=== PATIENT | female | born 2000 | race Hispanic/Latino ===

== ENCOUNTER 2023-07-16 10:10 | Emergency (ER) | payer BC ==
[2023-07-16 11:11] LABS: Absolute Lymphocytes (CBC) 1.9 K/uL (0.7-4.9); Hematocrit 38.2 % (36.0-45.0); Lymphocytes % 23.8 % (15.3-44.8); MCV 75.1 fL (80-100); MPV 9.5 fL (7.6-11.3); Platelets 250 thou/uL (152-406); RBC Red Blood Cell Count 5.09 M/uL (3.86-4.86)
[2023-07-16 11:13] LABS: Protime INR 0.96
[2023-07-16 11:20] LABS: Barbiturates NEGATIVE (NEGATIVE); Benzodiazepines POSITIVE (NEGATIVE); Cocaine NEGATIVE (NEGATIVE); METHAMPHETAM NEGATIVE (NEGATIVE); Methadone NEGATIVE (NEGATIVE); Opiates NEGATIVE (NEGATIVE); Phencyclidine NEGATIVE (NEGATIVE); THC Cannibis NEGATIVE (NEGATIVE)
[2023-07-16 11:23] LABS: ALT/SGPT 25 U/L (13-56); AST/SGOT 15 U/L (15-37); Albumin 3.5 g/dL (3.4-5.0); Alkaline Phosphatase 91 U/L (45-117); BUN Blood Urea Nitrogen 19 mg/dL (7-18); Bicarbonate 28 mEq/L (21-32); Bilirubin Direct < 0.1 mg/dL (0-0.2); Bilirubin Indirect, Calculated ND mg/dL (0.2-0.8); Bilirubin Total 0.3 mg/dL (0.2-1.0); Glomerular Filtration Rate 50 ml/min (=/>90); Glucose Level 79 mg/dL (74-106); Potassium 3.8 mEq/L (3.5-5.1); Protein, Total 7.7 g/dL (6.4-8.2); Sodium Level 138 mEq/L (136-145)
[2023-07-16 12:31] LABS: Specific Gravity 1.008 (1.005-1.030)
--- NOTE | 2023-07-16 12:41 | ER ---
Nurse's Notes [facility] Name: Clarissa Davis Age: 23 yrs Sex: Female : 2000 Arrival Date: 07/16/2023 Time: 10:10 Bed 5 Private MD: Diagnosis: Headache;Abuse of other non-psychoactive substances Presentation: 07/16 10:30 Chief complaint: Headache x 2 days. Coronavirus screen: At this time, the client does hb not indicate any symptoms associated with coronavirus-19. Ebola Screen: No symptoms or risks identified at this time. Initial Sepsis Screen: Does the patient meet any 2 criteria? No. Patient's initial sepsis screen is negative. Does the patient have a suspected source of infection? No. Patient's initial sepsis screen is negative. Risk Assessment: Do you want to hurt yourself or someone else? Patient reports no desire to harm self or others. Onset of symptoms was July 15, 2023. 10:30 Method Of Arrival: Ambulatory hb 10:30 Acuity: SHADY 3 hb Historical: - Allergies: 10:32 No Known Allergies; hb - Home Meds: 11:33 clonazepam 1 mg oral tablet daily [Active]; escitalopram oxalate 20 mg oral tablet rs5 daily [Active]; Depakote 250 mg oral tablet, delayed release (enteric coated) 3 times per day [Active]; - PMHx: 10:27 Asthma; rs5 11:33 Bilat Breast Reduction; rs5 - Immunization history:: Adult Immunizations unknown. - Social history:: Smoking status: unknown. Screenin:30 [facility] ED Fall Risk Assessment (Adult) History of falling in the last 3 months, kc6 including since admission No falls in past 3 months (0 pts) Confusion or Disorientation No (0 pts) Intoxicated or Sedated No (0 pts) Impaired Gait No (0 pts) Mobility Assist Device Used No (0 pt) Altered Elimination No (0 pt) Score/Fall Risk Level 0 - 2 = Low Risk. Abuse screen: Denies threats or abuse. Denies injuries from another. Nutritional screening: No deficits noted. Tuberculosis screening: No symptoms or risk factors identified. Assessment: 10:25 General: Appears in no apparent distress. uncomfortable, Behavior is cooperative, rs5 anxious. 10:25 Pain: Complains of pain in head Pain does not radiate. Pain currently is 8 out of 10 on rs5 a pain scale. Quality of pain is described as aching, Pain began one week ago, worse today Is intermittent. Neuro: Level of Consciousness is awake, alert, obeys commands, confused, Oriented to person, place, time, situation. Cardiovascular: Heart tones S1 S2 present Rhythm is regular. Respiratory: Airway is patent Respiratory effort is even, unlabored, Respiratory pattern is regular, symmetrical. GI: Abdomen is round non-distended, Bowel sounds present X 4 quads. Abd is soft and non tender X 4 quads. : No signs and/or symptoms were reported regarding the genitourinary system. EENT: No signs and/or symptoms were reported regarding the EENT system. EENT: No signs and/or symptoms were reported regarding the EENT system. Derm: Skin is dry, Skin is normal, Skin temperature is warm. Musculoskeletal: Range of motion: intact in all extremities. 11:25 Reassessment: Patient appears in no apparent distress at this time. No changes from kc6 previously documented assessment. Patient and/or family updated on plan of care and expected duration. Pain level reassessed. Patient is alert, oriented x 3, equal unlabored respirations, skin warm/dry/pink. 12:25 Reassessment: Patient appears in no apparent distress at this time. No changes from kc6 previously documented assessment. Patient and/or family updated on plan of care and expected duration. Pain level reassessed. Patient is alert, oriented x 3, equal unlabored respirations, skin warm/dry/pink. 13:25 Reassessment: Patient appears in no apparent distress at this time. No changes from kc6 previously documented assessment. Patient and/or family updated on plan of care and expected duration. Pain level reassessed. Patient is alert, oriented x 3, equal unlabored respirations, skin warm/dry/pink. Vital Signs: 10:22 BP 135 / 91; Pulse 98; Resp 17; Temp 98.5(O); Pulse Ox 99% on R/A; rs5 10:30 BP 135 / 91; Pulse 105; Resp 20; Temp 98.4; Pulse Ox 100% on R/A; Weight 58.97 kg; hb Height 5 ft. 4 in. ; Pain 10/10; 11:19 BP 118 / 82; Pulse 93; Resp 17; Pulse Ox 99% on R/A; rs5 11:47 BP 115 / 76; Pulse 90; Resp 16; Pulse Ox 99% on R/A; rs5 10:30 Body Mass Index 22.31 (58.97 kg, 162.56 cm) hb 10:30 Pain Scale: Adult hb [place] Coma Score: 13:12 Eye Response: spontaneous(4). Motor Response: obeys commands(6). Verbal Response: snw oriented(5). Total: 15. ED Course: 10:15 Patient arrived in ED. im 10:23 Annika Varghese FNP-C is PHCP. snw 10:23 Michael Bettencourt MD is Attending Physician. snw 10:30 Patient has correct armband on for positive identification. Placed in gown. Bed in low kc6 position. Call light in reach. Side rails up X2. Adult w/ patient. Client placed on continuous cardiac and pulse oximetry monitoring. NIBP monitoring applied. 10:30 Arm band placed on. kc6 10:32 Triage completed. hb 10:35 Yeni Jasmine RN is Primary Nurse. kc6 10:54 Inserted saline lock: 20 gauge in right antecubital area, using aseptic technique. kc6 Blood collected. 12:08 Yeni Jasmine RN is Primary Nurse. kc6 13:29 No provider procedures requiring assistance completed. IV discontinued, intact, kc6 bleeding controlled, No redness/swelling at site. Pressure dressing applied. Administered Medications: 13:20 Drug: Ketorolac IVP 30 mg Route: IVP; Site: right antecubital; kc6 13:28 Follow up: Response: No adverse reaction; Pain is decreased kc6 13:20 Drug: Geodon IM 10 mg Route: IM; Site: left deltoid; kc6 13:28 Follow up: Response: No adverse reaction; Anxiety decreased; RASS: Alert and Calm (0) kc6 Medication: 13:29 VIS not applicable for this client. kc6 Outcome: 12:41 Discharge ordered by . snw 13:28 Discharged to home ambulatory, with family. hb 13:28 Condition: stable 13:28 Discharge instructions given to patient, family, Instructed on Demonstrated understanding of instructions, follow-up care, medications. 13:29 Patient left the ED. hb Signatures: Annika Varghese FNP-C PHOTOENGRAVING PRINTER-Csnw Ansley Mayo, RN RN hb Yeni Jasmine, RN RN kc6 Gwyn Simpson, RN RN rs5 Lanette Lopez
--- NOTE | 2023-07-16 12:41 | EDPHYS ---
Physician Documentation [facility] Name: Clarissa Davis Age: 23 yrs Sex: Female : 2000 Arrival Date: 07/16/2023 Time: 10:10 Bed 5 Private MD: ED Physician Michael Bettencourt HPI: 07/16 13:09 This 23 yrs old Female presents to ER via Ambulatory with complaints of snw Headache. 13:09 The patient complains of pain to the forehead. The patient describes the headache as snw aching. Onset: The symptoms/episode began/occurred acutely. Associated signs and symptoms: Pertinent positives: Mom states pt has not been on psych meds since they moved from [place]. Was doing well and then used marijuana, now pt is tearful, denies SI, HI. Severity of symptoms: At its worst the pain was mild. The patient has experienced similar episodes in the past, with the last episode occurring 6 month(s) ago. The patient has not recently seen a physician. . Historical: - Allergies: 10:32 No Known Allergies; hb - Home Meds: 11:33 clonazepam 1 mg oral tablet daily [Active]; escitalopram oxalate 20 mg oral tablet rs5 daily [Active]; Depakote 250 mg oral tablet, delayed release (enteric coated) 3 times per day [Active]; - PMHx: 10:27 Asthma; rs5 11:33 Bilat Breast Reduction; rs5 - Immunization history:: Adult Immunizations unknown. - Social history:: Smoking status: unknown. ROS: 13:09 Eyes: Negative for injury, pain, redness, and discharge, ENT: Negative for injury, snw pain, and discharge, Neck: Negative for injury, pain, and swelling, Cardiovascular: Negative for chest pain, palpitations, and edema, Respiratory: Negative for shortness of breath, cough, wheezing, and pleuritic chest pain, Abdomen/GI: Negative for abdominal pain, nausea, vomiting, diarrhea, and constipation, Back: Negative for injury and pain, : Negative for injury, bleeding, discharge, and swelling, MS/Extremity: Negative for injury and deformity, Skin: Negative for injury, rash, and discoloration. 13:09 Constitutional: Positive for malaise. 13:09 Neuro: Positive for headache. 13:09 Psych: Positive for anxiety, depression, drug dependence. Exam: 13:12 Constitutional: This is a well developed, well nourished patient who is awake, alert, snw and in no acute distress. Head/Face: Normocephalic, atraumatic. Eyes: Pupils equal round and reactive to light, extra-ocular motions intact. Lids and lashes normal. Conjunctiva and sclera are non-icteric and not injected. Cornea within normal limits. Periorbital areas with no swelling, redness, or edema. ENT: Nares patent. No nasal discharge, no septal abnormalities noted. Tympanic membranes are normal and external auditory canals are clear. Oropharynx with no redness, swelling, or masses, exudates, or evidence of obstruction, uvula midline. Mucous membranes moist. Neck: Trachea midline, no thyromegaly or masses palpated, and no cervical lymphadenopathy. Supple, full range of motion without nuchal rigidity, or vertebral point tenderness. No Meningismus. Chest/axilla: Normal chest wall appearance and motion. Nontender with no deformity. No lesions are appreciated. Cardiovascular: Regular rate and rhythm with a normal S1 and S2. No gallops, murmurs, or rubs. Normal PMI, no JVD. No pulse deficits. Respiratory: Lungs have equal breath sounds bilaterally, clear to auscultation and percussion. No rales, rhonchi or wheezes noted. No increased work of breathing, no retractions or nasal flaring. Abdomen/GI: Soft, non-tender, with normal bowel sounds. No distension or tympany. No guarding or rebound. No evidence of tenderness throughout. Back: No spinal tenderness. No costovertebral tenderness. Full range of motion. Skin: Warm, dry with normal turgor. Normal color with no rashes, no lesions, and no evidence of cellulitis. MS/ Extremity: Pulses equal, no cyanosis. Neurovascular intact. Full, normal range of motion. Neuro: Awake and alert, GCS 15, oriented to person, place, time, and situation. Cranial nerves II-XII grossly intact. Motor strength 5/5 in all extremities. Sensory grossly intact. Cerebellar exam normal. Normal gait. 13:12 Psych: Behavior/mood is anxious, depressed, Affect is flat, Oriented to person, place, time, Patient has no thoughts/intents to harm self or others. Vital Signs: 10:22 BP 135 / 91; Pulse 98; Resp 17; Temp 98.5(O); Pulse Ox 99% on R/A; rs5 10:30 BP 135 / 91; Pulse 105; Resp 20; Temp 98.4; Pulse Ox 100% on R/A; Weight 58.97 kg; hb Height 5 ft. 4 in. ; Pain 10/10; 11:19 BP 118 / 82; Pulse 93; Resp 17; Pulse Ox 99% on R/A; rs5 11:47 BP 115 / 76; Pulse 90; Resp 16; Pulse Ox 99% on R/A; rs5 10:30 Body Mass Index 22.31 (58.97 kg, 162.56 cm) hb 10:30 Pain Scale: Adult hb [place] Coma Score: 13:12 Eye Response: spontaneous(4). Motor Response: obeys commands(6). Verbal Response: snw oriented(5). Total: 15. MDM: 10:24 Patient medically screened. snw 11:45 ED course: Pt used to take Tegretol, escitalopram, clonazepam. snw 13:12 Differential diagnosis: hypertensive headache, sinusitis, tension headache, drug use snw with psychosis. Data reviewed: vital signs, nurses notes, lab test result(s), EKG. I considered the following discharge prescriptions or medication management in the emergency department Medications were administered in the Emergency Department. See MAR. Historians other than the Patient: Parent: Mom. Counseling: I had a detailed discussion with the patient and/or guardian regarding the historical points, exam findings, and any diagnostic results supporting the discharge/admit diagnosis, lab results, the need for outpatient follow up, for definitive care. Special discussion: Based on the history and exam findings, there is no indication for further emergent testing or inpatient evaluation. I discussed with the patient/guardian the need to see the psychiatrist for further evaluation of the symptoms. 07/16 10:41 Order name: Acetaminophen; Complete Time: 07/16 10:41 Order name: Basic Metabolic Panel; Complete Time: 07/16 10:41 Order name: CBC with Diff; Complete Time: 07/16 10:41 Order name: ETOH Level; Complete Time: 07/16 10:41 Order name: Hepatic Function; Complete Time: :31 07/16 10:41 Order name: PT-INR; Complete Time: 11:31 07/16 10:41 Order name: Ptt, Activated; Complete Time: 11:31 07/16 10:41 Order name: Salicylate; Complete Time: 11:37 07/16 10:41 Order name: Urine Drug Screen; Complete Time: 11:31 07/16 12:13 Order name: Test, Urine; Complete Time: 12:35 07/16 10:41 Order name: EKG; Complete Time: 10:42 07/16 10:41 Order name: EKG - Nurse/Tech; Complete Time: 10:54 07/16 10:41 Order name: IV Saline Lock; Complete Time: 10:48 07/16 10:41 Order name: Labs collected and sent; Complete Time: 10:48 07/16 10:41 Order name: Suicide Screening ([place]); Complete Time: 10:54 EC:55 Rate is 94 beats/min. Rhythm is regular with LVH. QRS [place] is Normal. Q waves are snw Present in leads II, III, aVF, V3, V4, V5, V6. Clinical impression: NSR w/ Non-specific ST/T Changes. Administered Medications: 13:20 Drug: Ketorolac IVP 30 mg Route: IVP; Site: right antecubital; [facility] 13:28 Follow up: Response: No adverse reaction; Pain is decreased [facility] 13:20 Drug: Geodon IM 10 mg Route: IM; Site: left deltoid; [facility] 13:28 Follow up: Response: No adverse reaction; Anxiety decreased; RASS: Alert and Calm (0) [facility] Disposition Summary: 07/16/23 12:41 Discharge Ordered Location: Home snw Condition: Stable snw Diagnosis - Headache snw - Abuse of other non-psychoactive substances snw Followup: snw - With: Emergency Department - When: As needed - Reason: Worsening of condition Followup: snw - With: Private Physician - When: 1 - 2 days - Reason: Recheck today's complaints, Continuance of care, Re-evaluation by your physician Discharge Instructions: - Discharge Summary Sheet snw - General Headache Without Cause snw - Psychosis snw - Rehydration, Adult snw - What You Need To Know About Antipsychotic Medicines snw Forms: - Medication Reconciliation Form snw - Thank You Letter snw - Antibiotic Education snw - Prescription Opioid Use snw - Patient Portal Instructions snw - Leadership Thank You Letter snw Signatures: Dispatcher [employer] Annika Vazquez FNP-C PHOTOGRAPHER PORTRAIT-Csnw Tram Villasenor RN RN aa5 Ansely Mayo RN RN Yeni Jasmine RN RN kc6 Gwyn Simpson RN RN rs5
[2023-07-16] MEDS ORDERED: ZIPRASIDONE MESYLA 20 MG/VIAL IM ONE (13:06)
[2023-07-16] MEDS ORDERED: KETOROLAC 30 MG/ML INJ ONE (13:06)
[2023-07-16] MEDS ORDERED: WATER FOR INJ,STERILE 10 ML ONE (13:22)
[2023-07-16 14:01] VITALS: TEMP 98.4
[2023-07-16 14:02] VITALS: O2SAT 99
[2023-07-16 14:04] VITALS: BP 115/76
--- NOTE | 2023-07-18 19:08 | EKG ---
Test Date: 2023-07-16 Test Time: 10:51:49 Operations Accountant: TRENT MEASUREMENT RESULTS: Intervals: Rate: 94 NC: 138 QRSD: 80 QT: 340 QTc: 425 [place]: P: 34 NC: 138 QRS: 71 T: 36 INTERPRETIVE STATEMENTS: Normal sinus rhythm Normal ECG No previous ECG available for comparison Electronically Signed On 07-18-23 19:05:38 CDT by Skip Pickett
== END 2023-07-16 13:29 | disposition home or self-care (01) ==
LOC: ER 10:10
DX: R51.9 Headache, unspecified (principal); F55.8 Abuse of other non-psychoactive substances
CPT/HCPCS: 93005; 85025; 80048; 36415; 81025; 85610; 80076; 85730; 80307; 96372; 96374; 99284; 80143; 80179; 82077; J3486

== ENCOUNTER 2024-04-10 22:10 | Emergency (ER) | payer BC ==
--- OUTSIDE RECORDS SUMMARY | 2024-04-10 22:13 | XMS REPORT | Continuity of Care Document ---
Author Name Unknown Address [address] [place] [address] [facility] thconnect Address [address] [place] [address] Care Team Providers Care Crepe Box Tender Name Role Phone Anthony Rhodes Attending Clinician Unavailable Payers Payer Name Policy Type Policy Number Effective Date Expirati on Date Source Allergies, Adverse Reactions, Alerts Allergy Name Allergy Type Status Severity Reaction(s) Onset Date Inactive Date Treating Clinician Comments Source No Known Drug Allergie s DA Active U 07-17 00:00: 00 [facility] Encounters Start Date/Time End Date/Time Encounter Type Admission Type Attending Clinicians Care Facility Care Department Encounter ID Source 2023-07-17 08:29:00 2023-07-17 08:29:00 Emergency Emergency Anthony Rhodes [facility] [id number] [address] [place] [address] 2023-07-17 08:29:00 2023-07-17 08:29:00 Emergency [facility] [id number] 16 [facility] Results Test Description Test Time Test Comments Results Result Co mments Source HCG, Serum Qual (LAB)2023-07-17 09:44:00* Test Item Value Reference Range Interpretation Comme nts HCG, Serum Qual (LAB) (test code = HCGQ) Negative Negative Comprehensive Metabolic [id number] 09:44:00* Test Item Value Reference Range Interpretation Comme nts SODIUM (test code = NA) 137.0 mmol/L 136.0-145.0 N Potassium,K (test code = K) 4.3 mmol/L 3.0-5.1 N Chloride (test code = CL) 106 mmol/L 98-107 N Carbon Dioxide (test code = CO2) 24 mmol/L 20-31 N Anion Gap (test code = GAP) 7 mmol/L 5-15 N Blood Urea Nitrogen (test code = BUN) 24 mg/dL 9-23 H Creatinine (test code = CREATT) 1.46 mg/dL 0.55-1.02 H Creatinine Clr Calc Pharmacy (test code = CRCLPHA) 49.15 mL/min Estimated Glomerular Filt Rate (test code = EGFR.XX) 51 See_Comment L Reported eGFR is based on the CKD-EPI 2020 equation thatdoes not use a race coefficient. Additional information canbe found at:[email or web address]_bxt_ [email or web address]_summary_flyer 5.pdf ([email or web address].[email or web address]) [Automated message] The system which generated this result transmitted reference range: >=90 ml/min/1.73m2. The reference range was not used to interpret this result as normal/abnormal. BUN/Creatinine Ratio (test code = BCRATIO) 16 ratio 10-20 N Glucose (test code = GLU) 97 mg/dL 74-106 N Osmolality,Calculated (test code = OSMOC) 287.5 Calcium (test code = CA) 9.5 mg/dL 8.3-10.6 N Bilirubin,Total (test code = BILIT) 0.3 mg/dL 0.2-1.1 N Aspartate Amino Transferase (test code = AST) 20 U/L 0-34 N Alanine Aminotransferase (test code = ALT) 20 U/L 10-49 N Total Protein (test code = TP) 6.9 g/dL 5.7-8.2 N Albumin Level (test code = ALB) 4.3 g/dL 3.2-4.8 N Globulin (test code = GLOB) 2.6 mg/dL 2.3-3.5 N Albumin/Globulin Ratio (test code = AGRATIO) 1.7 ratio 0.8-2.0 N Alkaline Phosphatase (test code = ALP) 83 U/L 46-116 N Creatine [id number] 09:44:00* Test Item Value Reference Range Interpretation Comme nts Creatine Kinase (test code = CK) 95 U/L 46-171 N Ethanol [id number] 09:44:00* Test Item Value Reference Range Interpretation Comme nts Ethanol (test code = ETOH) < 3 mg/dL The pharmacologi jagdish response to blood alcohol levels mayvary from individual to individual. The fatal concentrationhas been reported to be >400mg/dL.
[2024-04-10] MEDS ORDERED: predniSONE 20 MG TAB ONE (23:03)
[2024-04-10] MEDS ORDERED: CEPHALEXIN 250 MG CAP ONE (23:03)
[2024-04-10] MEDS ORDERED: PROMETHAZINE 25 MG TABLET ONE (23:03)
[2024-04-10] MEDS ORDERED: DIPHENHYDRAMINE 25 MG TAB/CAP ONE (23:04)
[2024-04-10] MEDS ORDERED: IBUPROFEN 400 MG TAB ONE (23:04)
[2024-04-10 23:13] LABS: Specific Gravity 1.014 (1.005-1.030)
--- NOTE | 2024-04-11 00:20 | EDPHYS ---
Physician Documentation [facility] Name: Clarissa Davis Age: 23 yrs Sex: Female : 2000 Arrival Date: 04/10/2024 Time: 22:10 Bed 17 Private MD: ED Physician Carl Wei HPI: 04/10 22:18 This 23 yrs old Female presents to ER via Unassigned with complaints of Sinus sp4 Congestion. 04/11 05:53 Patient presents with 3 months of sinus congestion and pressure in sinuses. sp4 Libyan-speaking only. OFFICE SUPPORT: 04/10 22:18 LMP 03/28/2024, unknown tm6 Historical: - Allergies: 22:20 No Known Allergies; tm6 - PMHx: 22:20 Asthma; Bilat Breast Reduction; tm6 22:21 Bipolar disorder; tm6 - PSHx: 22:20 bilateral breast reduction (Bilat Breast Reduction); tm6 - Immunization history:: Client reports receiving the 2nd dose of the Covid vaccine. - Infectious Disease History:: Denies. - Social history:: Smoking status: Patient denies any tobacco usage or history of. Patient/guardian denies using alcohol. - Family history:: not pertinent. ROS: 04/11 05:53 Constitutional: Negative for fever, chills, and weight loss, positive nasal congestion sp4 and sinus pressure. All other systems are negative, Exam: 05:53 Constitutional: This is a well developed, well nourished patient who is awake, alert, sp4 and in no acute distress. Head/Face: Normocephalic, atraumatic. Eyes: Pupils equal round and reactive to light, extra-ocular motions intact. Lids and lashes normal. Conjunctiva and sclera are not injected. Cornea within normal limits. Periorbital areas with no swelling, redness, or edema. ENT: Tympanic membranes are normal and external auditory canals are clear. Oropharynx with no redness, swelling, or masses, exudates, or evidence of obstruction, uvula midline. Mucous membranes moist. Bilateral nasal congestion and yellowish nasal discharge on exam. Neck: Trachea midline, no thyromegaly or masses palpated, and no cervical lymphadenopathy. Supple, full range of motion without nuchal rigidity, or vertebral point tenderness. Chest/axilla: Normal chest wall appearance and motion. Nontender with no deformity. No lesions are appreciated. Cardiovascular: Regular rate and rhythm with a normal S1 and S2. No gallops, murmurs, or rubs. Normal PMI, no JVD. No pulse deficits. Respiratory: Lungs have equal breath sounds bilaterally, clear to auscultation and percussion. No rales, rhonchi or wheezes noted. No increased work of breathing, no retractions or nasal flaring. Abdomen/GI: Soft, with normal bowel sounds. No distension or tympany. No guarding or rebound. No evidence of tenderness throughout. Back: No spinal tenderness. No costovertebral tenderness. Skin: Warm, dry with normal turgor. Normal color with no rashes, no lesions, and no evidence of cellulitis. MS/ Extremity: Pulses equal, no cyanosis. Neurovascular intact. Full, normal range of motion. Neuro: Awake and alert, GCS 15, oriented to person, place, time, and situation. Cranial nerves II-XII grossly intact. Motor strength 5/5 in all extremities. Sensory grossly intact. Psych: Awake, alert, with orientation to person, place and time. Behavior, mood, and affect are within normal limits Vital Signs: 04/10 22:18 BP 128 / 83; Pulse 96; Resp 17; Temp 97(TE); Pulse Ox 99% on R/A; Weight 66.22 kg; tm6 Height 5 ft. 4 in. ; Pain 0/10; 23:00 BP 133 / 99; Pulse 94; Resp 16; Pulse Ox 100% on R/A; me1 04/11 00:04 BP 117 / 85; Pulse 78; Resp 17; Temp 97.3(TE); Pulse Ox 100% ; Pain 0/10; tm6 04/10 22:18 Body Mass Index 25.06 (66.22 kg, 162.56 cm) tm6 04/10 22:18 Pain Scale: Adult tm6 04/11 00:04 Pain Scale: Adult tm6 [place] Coma Score: 05:53 Eye Response: spontaneous(4). Motor Response: obeys commands(6). Verbal Response: sp4 oriented(5). Total: 15. MDM: 00:19 Patient medically screened. sp4 05:53 Differential Diagnosis: Obstructed Airway Influenza Sinusitis Pharyngitis. Data sp4 reviewed: vital signs, nurses notes, lab test result(s), UPT: negative. 05:54 Consideration of Admission/Observation Escalation of care including sp4 admission/observation considered. ED course: Patient advised to use Afrin nasal spray also saline nasal rinses daily. Advised to take cephalexin daily prednisone for next 5 days ibuprofen as needed. Also advised to see ENT for further evaluation of persistent nasal congestion. . 04/10 22:51 Order name: Test, Urine; Complete Time: 00:18 sp4 Administered Medications: 04/10 23:28 Drug: diphenhydrAMINE PO 25 mg PO once Route: PO; me1 23:58 Follow up: Response: No adverse reaction me1 23:28 Drug: predniSONE PO 60 mg PO once Route: PO; me1 23:58 Follow up: Response: No adverse reaction me1 23:28 Drug: Ibuprofen PO 800 mg PO once Route: PO; me1 23:58 Follow up: Response: No adverse reaction me1 23:28 Drug: Promethazine PO 25 mg PO once Route: PO; me1 23:58 Follow up: Response: No adverse reaction me1 23:28 Drug: Cephalexin PO 500 mg PO once Route: PO; me1 23:58 Follow up: Response: No adverse reaction me1 Disposition Summary: 04/11/24 00:19 Discharge Ordered Problem: new sp4 Symptoms: have improved sp4 Condition: Stable sp4 Diagnosis - Acute sinusitis, unspecified sp4 - Nasal congestion sp4 Followup: sp4 - With: Coni Licona MD - When: 7 - 10 days - Reason: Recheck today's complaints Discharge Instructions: - Discharge Summary Sheet sp4 - Sinusitis, Adult, [id number] sp4 Forms: - Patient Portal Instructions sp4 Prescriptions: - Benadryl 25 mg Oral Capsule - take 1 capsule ORAL route every 6 hours As needed; 30 tablet; Refills: 0, sp4 Product Selection Permitted - Cephalexin 500 mg Oral Capsule - take 1 capsule ORAL route every 12 hours for 10 days; 20 capsule; Refills: 0, sp4 Product Selection Permitted - Claritin 10 mg Oral Tablet - take 1 tablet ORAL route once daily As needed; 30 tablet; Refills: 0, Product sp4 Selection Permitted - Prednisone 20 mg Oral Tablet - take 2 tablets ORAL route once daily for 5 days; 10 tablet; Refills: 0, Product sp4 Selection Permitted Signatures: Dispatcher [employer] Carl Snell MD MD sp4 Bri Ames RN RN me1 Isabelle Segal RN RN tm6
--- NOTE | 2024-04-11 00:20 | ER ---
Nurse's Notes [facility] Name: Clarissa Davis Age: 23 yrs Sex: Female : 2000 Arrival Date: 04/10/2024 Time: 22:10 Bed 17 Private MD: Diagnosis: Acute sinusitis, unspecified;Nasal congestion Presentation: 04/10 22:19 Chief complaint: Patient states: has sinus congestion x1 month. Cannot breathe through tm6 nose, difficult to sleep. Has tried OTC medications for one month and nothing has helped. Coronavirus screen: Vaccine status: Patient reports receiving the 2nd dose of the covid vaccine. Ebola Screen: Patient negative for fever greater than or equal to 101.5 degrees Fahrenheit, and additional compatible Ebola Virus Disease symptoms Patient denies exposure to infectious person. Patient denies travel to an Ebola-affected area in the 21 days before illness onset. No symptoms or risks identified at this time. Initial Sepsis Screen: Does the patient meet any 2 criteria? No. Patient's initial sepsis screen is negative. Does the patient have a suspected source of infection? No. Patient's initial sepsis screen is negative. Risk Assessment: Do you want to hurt yourself or someone else? Patient reports no desire to harm self or others. Onset of symptoms was March 10, 2024. 22:19 Method Of Arrival: Ambulatory tm6 22:19 Acuity: SHADY 3 tm6 Triage Assessment: 22:21 General: Appears in no apparent distress. Behavior is calm, cooperative. Pain: Denies tm6 pain. EENT: Reports nasal congestion since one month ago nasal discharge that is green. Neuro: Level of Consciousness is awake, alert, obeys commands, Oriented to person, place, time, situation. Cardiovascular: Patient's skin is warm and dry. Respiratory: Airway is patent Respiratory effort is even, unlabored, Respiratory pattern is regular, symmetrical. GI: No signs and/or symptoms were reported involving the gastrointestinal system. Abdomen is flat, non-distended. : No signs and/or symptoms were reported regarding the genitourinary system. Derm: No signs and/or symptoms reported regarding the dermatologic system. Musculoskeletal: No signs and/or symptoms reported regarding the musculoskeletal system. 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 - Infectious Disease History:: Denies. - Social history:: Smoking status: Patient denies any tobacco usage or history of. Patient/guardian denies using alcohol. - Family history:: not pertinent. Screenin:47 [facility] ED Fall Risk Assessment (Adult) History of falling in the last 3 months, me1 including since admission No falls in past 3 months (0 pts) Confusion or Disorientation No (0 pts) Intoxicated or Sedated No (0 pts) Impaired Gait No (0 pts) Mobility Assist Device Used No (0 pt) Altered Elimination No (0 pt) Score/Fall Risk Level 0 - 2 = Low Risk Maintained a safe environment, Provided non-skid footwear, Hourly rounding (assess needs \T\ fall precautionary measures) done. Abuse screen: Denies threats or abuse. Nutritional screening: No deficits noted. Tuberculosis screening: No symptoms or risk factors identified. Assessment: 22:47 General: Appears comfortable, well developed, well nourished, Behavior is calm, me1 cooperative, appropriate for age, Reports nasal congestion x 1 month, unable to sleep. No relief with OTC meds. Pain: Denies pain. Neuro: Level of Consciousness is awake, alert, obeys commands, Oriented to person, place, time, situation, Appropriate for age. Cardiovascular: Patient's skin is warm and dry. Respiratory: Reports nasal congestion x 1 month Airway is patent Respiratory effort is even, unlabored, Respiratory pattern is regular, symmetrical. GI: No signs and/or symptoms were reported involving the gastrointestinal system. : No signs and/or symptoms were reported regarding the genitourinary system. EENT: Reports nasal congestion since 1 month ago. Derm: Skin is intact, is healthy with good turgor, Skin is pink, warm \T\ dry. Musculoskeletal: No signs and/or symptoms reported regarding the musculoskeletal system. 04/11 00:04 Reassessment: Patient appears in no apparent distress at this time. Patient and/or tm6 family updated on plan of care and expected duration. Pain level reassessed. Patient is alert, oriented x 3, equal unlabored respirations, skin warm/dry/pink. Vital Signs: 04/10 22:18 BP 128 / 83; Pulse 96; Resp 17; Temp 97(TE); Pulse Ox 99% on R/A; Weight 66.22 kg; tm6 Height 5 ft. 4 in. ; Pain 0/10; 23:00 BP 133 / 99; Pulse 94; Resp 16; Pulse Ox 100% on R/A; me1 04/11 00:04 BP 117 / 85; Pulse 78; Resp 17; Temp 97.3(TE); Pulse Ox 100% ; Pain 0/10; tm6 04/10 22:18 Body Mass Index 25.06 (66.22 kg, 162.56 cm) tm6 04/10 22:18 Pain Scale: Adult tm6 04/11 00:04 Pain Scale: Adult tm6 [place] Coma Score: 05:53 Eye Response: spontaneous(4). Motor Response: obeys commands(6). Verbal Response: sp4 oriented(5). Total: 15. ED Course: 04/10 22:16 Patient arrived in ED. ra3 22:18 Carl Wei MD is Attending Physician. sp4 22:20 Triage completed. tm6 22:21 Arm band placed on left wrist. tm6 22:47 Bri Ames, RN is Primary Nurse. me1 22:47 Patient has correct armband on for positive identification. Bed in low position. Call me1 light in reach. Side rails up X 1. Provided Education on: POC. Verbalized understanding. . Client placed on continuous cardiac and pulse oximetry monitoring. NIBP monitoring applied. Pulse ox on. NIBP on. 22:47 No provider procedures requiring assistance completed. me1 23:00 Urine collected: clean catch specimen, clear. me1 04/11 00:19 Coni Licona MD is Referral Physician. sp4 00:26 Patient did not have IV access during this emergency room visit. tm6 Administered Medications: 04/10 23:28 Drug: diphenhydrAMINE PO 25 mg PO once Route: PO; me1 23:58 Follow up: Response: No adverse reaction me1 23:28 Drug: predniSONE PO 60 mg PO once Route: PO; me1 23:58 Follow up: Response: No adverse reaction me1 23:28 Drug: Ibuprofen PO 800 mg PO once Route: PO; me1 23:58 Follow up: Response: No adverse reaction me1 23:28 Drug: Promethazine PO 25 mg PO once Route: PO; me1 23:58 Follow up: Response: No adverse reaction me1 23:28 Drug: Cephalexin PO 500 mg PO once Route: PO; me1 23:58 Follow up: Response: No adverse reaction me1 Medication: 22:47 VIS not applicable for this client. me1 Outcome: 04/11 00:19 Discharge ordered by . sp4 00:25 Discharged to home ambulatory, with family, tm6 00:25 Condition: stable 00:25 Discharge instructions given to patient, family, Instructed on discharge instructions, follow up and referral plans. medication usage, Demonstrated understanding of instructions, follow-up care, medications, Prescriptions given X 4, 00:26 Patient left the ED. tm6 Signatures: Carl Wei MD MD sp4 Bri Ames RN RN ct1 Isabelle Segal RN RN tm6 Yue Alejandre 3
[2024-04-11 00:59] VITALS: BP 117/85; TEMP 97.3; O2SAT 100
== END 2024-04-11 00:26 | disposition home or self-care (01) ==
LOC: ER 22:10
DX: J01.90 Acute sinusitis, unspecified (principal)
CPT/HCPCS: 81025; 99284; Q0169; J7512

== ENCOUNTER 2024-07-14 20:03 | Emergency (ER) | payer BC ==
--- OUTSIDE RECORDS SUMMARY | 2024-07-14 20:07 | XMS REPORT | Continuity of Care Document ---
Author Name Unknown Address [address] [place] [address] [facility] Address [address] [place] [address] Care Team Providers Care Supervisor Metalizing Name Role Phone Anthony Rhodes Attending Clinician Unavailable Payers Payer Name Policy Type Policy Number Effective Date Expirati on Date Source Allergies, Adverse Reactions, Alerts Allergy Name Allergy Type Status Severity Reaction(s) Onset Date Inactive Date Treating Clinician Comments Source No Known Drug Allergie s DA Active U 07-17 00:00: 00 [facility] Encounters Start Date/Time End Date/Time Encounter Type Admission Type Attending Clinicians Care Facility Care Department Encounter ID Source 2023-07-17 08:29:00 2023-07-17 08:29:00 Emergency Emergency Anthony Rhodes [facility] [id number] [address] [place] [address] 2023-07-17 08:29:00 2023-07-17 08:29:00 Emergency [facility] [id number] [address] [place] [address] Results Test Description Test Time Test Comments Results Result Co mments Source HCG, Serum Qual (LAB)2023-07-17 09:44:00* Test Item Value Reference Range Interpretation Comme nts HCG, Serum Qual (LAB) (test code = HCGQ) Negative Negative Comprehensive Metabolic [id number] 09:44:00* Test Item Value Reference Range Interpretation [...] Reported eGFR is based on the CKD-EPI 202 equation thatdoes not use a race coefficient. Additional information canbe found at:[email or web address] ([email or web address]) [Automated message] The system [...] = ALP) 83 U/L 46-116 N Creatine [id number] 09:44:00* Test Item Value Reference Range Interpretation Comme nts Creatine Kinase (test code = CK) 95 U/L 46-171 N Ethanol [id number] 09:44:00* Test Item Value Reference Range Interpretation Comme nts Ethanol (test code = ETOH) < 3 mg/dL The pharmacologi jagdish response to blood alcohol levels mayvary from individual to individual. The fatal concentrationhas been reported to be >400mg/dL.
[2024-07-14 21:30] LABS: Absolute Basophils 0.1 K/uL (0-0.5); Absolute Eosinophils 0.3 K/uL (0-0.5); Absolute Lymphocytes (CBC) 2.8 K/uL (0.7-4.9); Absolute Monocytes 0.6 K/uL (0.1-1.3); Absolute Neutrophil 7.9 K/uL (1.8-8.0); Basophils % 0.8 % (0-1.3); Eosinophils % 2.9 % (0-4.4); Hematocrit 42.4 % (36.0-45.0); Hemoglobin 13.6 g/dL (12.0-15.0); Lymphocytes % 24.1 % (15.3-44.8); MCHC 32.1 g/dL (32.0-36.0); MCV 77.8 fL (80-100); MPV 9.4 fL (7.6-11.3); Monocytes % 5.1 % (3.3-12.3); Neutrophils % 67.1 % (41.7-73.7); Platelets 326 thou/uL (152-406); RBC Red Blood Cell Count 5.45 M/uL (3.86-4.86); Red Cell Distribution Width 15.5 % (12.1-15.2)
[2024-07-14 21:38] LABS: PTT, Activated Partial Thromb 34.3 SECONDS (24.3-36.9); Protime INR 0.98
[2024-07-14 21:44] LABS: Specific Gravity 1.008 (1.005-1.030)
[2024-07-14 21:45] LABS: Specific Gravity 1.008 (1.005-1.030); Urine Bilirubin NEGATIVE (Negative); Urine Blood Negative (Negative); Urine Clarity Turbid (Clear); Urine Color Colorless (Yellow); Urine Glucose NEGATIVE (Negative); Urine Ketones NEGATIVE (Negative); Urine Microscopic Reflex YN NO UMIC; Urine Nitrite NEGATIVE (Negative); Urine Protein 1+ (Negative); Urine Urobilinogen Normal (Normal)
[2024-07-14 21:51] LABS: Barbiturates NEGATIVE (NEGATIVE); Benzodiazepines NEGATIVE (NEGATIVE); Cocaine NEGATIVE (NEGATIVE); METHAMPHETAM NEGATIVE (NEGATIVE); Methadone NEGATIVE (NEGATIVE); Opiates NEGATIVE (NEGATIVE); Phencyclidine NEGATIVE (NEGATIVE); THC Cannibis POSITIVE (NEGATIVE)
[2024-07-14 21:51] LABS: ALT/SGPT 33 U/L (13-56); Albumin 3.6 g/dL (3.4-5.0); Albumin/Globulin Ratio 0.8 (1.1-1.8); Alkaline Phosphatase 90 U/L (45-117); Anion Gap 12.5 mEq/L (5.0-15.0); BUN Blood Urea Nitrogen 12 mg/dL (7-18); Bicarbonate 22 mEq/L (21-32); Bilirubin Total 0.3 mg/dL (0.2-1.0); Globulin 4.7 g/dL (2.3-3.5); Glomerular Filtration Rate 51 ml/min (=/>90); Glucose Level 75 mg/dL (74-106); Protein, Total 8.3 g/dL (6.4-8.2); Sodium Level 136 mEq/L (136-145)
[2024-07-14 21:55] LABS: AST/SGOT 28 U/L (15-37); Bilirubin Direct < 0.2 mg/dL (0-0.2); Bilirubin Indirect, Calculated 0.1 mg/dL (0.2-0.8); Potassium 4.5 mEq/L (3.5-5.1)
--- NOTE | 2024-07-15 00:32 | ER ---
Nurse's Notes [facility] Name: Clarissa Davis Age: 24 yrs Sex: Female : 2000 Arrival Date: 07/14/2024 Time: 20:03 Bed 17 Private MD: Diagnosis: Auditory hallucinations Presentation: 07/14 20:38 Chief complaint: Parent and/or Guardian states: Patient is having an emotional crisis cm10 since this morning. Pt has been throwing things. Pt denies SI but states that she is having HI towards an ex-boyfriend. Pt reports having auditory and visual hallucinations. Coronavirus screen: Client denies travel out of the [place] in the last 14 days. Ebola Screen: Patient denies travel to an Ebola-affected area in the 21 days before illness onset. No symptoms or risks identified at this time. Initial Sepsis Screen: Does the patient meet any 2 criteria? HR > 90 bpm. Does the patient have a suspected source of infection? No. Patient's initial sepsis screen is negative. Risk Assessment: Do you want to hurt yourself or someone else? Patient reports desire/thoughts of hurting themselves or someone else. Provider notified. Onset of symptoms was July 14, 2024. 20:38 Method Of Arrival: Ambulatory cm10 20:38 Acuity: SHADY 2 cm10 Triage Assessment: 20:42 General: Appears in no apparent distress. comfortable, Behavior is calm, cooperative. cm10 Neuro: No deficits noted. Level of Consciousness is awake, alert, obeys commands, Oriented to person, place, time, situation, Appropriate for age. Respiratory: No deficits noted. Airway is patent Respiratory effort is even, unlabored, Respiratory pattern is regular, symmetrical. 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 - Infectious Disease History:: Denies. - Social history:: Smoking status: Patient reports the use of cigarette tobacco products, denies chronic smoking, but will smoke occasionally. - Family history:: not pertinent. Screenin:59 [facility] ED Fall Risk Assessment (Adult) History of falling in the last 3 months, cp4 including since admission No falls in past 3 months (0 pts) Confusion or Disorientation No (0 pts) Intoxicated or Sedated No (0 pts) Impaired Gait No (0 pts) Mobility Assist Device Used No (0 pt) Altered Elimination No (0 pt) Score/Fall Risk Level 0 - 2 = Low Risk Oriented to surroundings, Maintained a safe environment, Assessed \\T\\ reinforced patient's understanding of fall precautions, Hourly rounding (assess needs \\T\\ fall precautionary measures) done. Abuse screen: Denies threats or abuse. Nutritional screening: No deficits noted. Tuberculosis screening: No symptoms or risk factors identified. Assessment: 20:59 General: Appears in no apparent distress. comfortable, Behavior is calm, cooperative, cp4 appropriate for age. Pain: Denies pain. Neuro: Level of Consciousness is awake, alert, obeys commands, Oriented to person, place, time, situation. Cardiovascular: Patient's skin is warm and dry. Respiratory: Airway is patent Respiratory effort is even, unlabored. GI: No signs and/or symptoms were reported involving the gastrointestinal system. : No signs and/or symptoms were reported regarding the genitourinary system. EENT: No signs and/or symptoms were reported regarding the EENT system. Derm: No signs and/or symptoms reported regarding the dermatologic system. Musculoskeletal: No signs and/or symptoms reported regarding the musculoskeletal system. 22:00 Reassessment: Patient appears in no apparent distress at this time. Patient and/or cp4 family updated on plan of care and expected duration. Pain level reassessed. Patient is alert, oriented x 3, equal unlabored respirations, skin warm/dry/pink. 22:59 General: Pt gives permission for mom to speak with [employer]. Spoke with enrobing machine corder 1 ID# [id number] with pts mom. Informed pt mom that she has to wait to speak with the [employer] travel attendants until after her daughter is finished speaking first since she is the pt. . 23:00 Reassessment: Patient appears in no apparent distress at this time. Patient and/or cp4 family updated on plan of care and expected duration. Pain level reassessed. Patient is alert, oriented x 3, equal unlabored respirations, skin warm/dry/pink. 07/15 00:00 Reassessment: Patient appears in no apparent distress at this time. Patient and/or cp4 family updated on plan of care and expected duration. Pain level reassessed. Patient is alert, oriented x 3, equal unlabored respirations, skin warm/dry/pink. Psych: 07/14 21:52 [place] Suicide Severity Screening: In the past month, have you wished you were cp4 or wished you could go to sleep and not wake up? Patient responds "No." "In the past month, have you actually had any thoughts of killing yourself?" Patient responds "no." "In your lifetime, have you ever done anything, started to do anything, or prepared to do anything to end your life?" Patient responds "no.". Subjective: Patient's mood is flat Delusions are denied, Hallucinations are auditory, visual, Having thoughts of homicide. Denies plan. Homicidal thoughts directed towards ex-boyfriend. Objective: Patient is cooperative, Speech is normal, Affect is flat. Interventions: Removed personal items and placed in bag. Patient placed in hospital gown. Searched person for dangerous items. Belonging list filled out. Safety Checks: Personal items have been removed. Door is open. No visitors are present at this time. Pt denies substance abuse. Commitment: Patient will be a voluntary commitment. Vital Signs: 20:38 BP 119 / 86; Pulse 102; Resp 16; Temp 97.4(IR); Pulse Ox 98% on R/A; Weight 69.4 kg; cm10 Height 5 ft. 4 in. ; Pain 0/10; 07/15 00:47 BP 117 / 86; Pulse 89; Resp 18; Temp 97.4; Pulse Ox 99% ; cp4 07/14 20:38 Body Mass Index 26.26 (69.40 kg, 162.56 cm) cm10 07/14 20:38 Pain Scale: Adult cm10 ED Course: 07/14 20:11 Patient arrived in ED. mr 20:12 Van Baker MD is Attending Physician. rt 20:41 Triage completed. cm10 20:42 Arm band placed on Patient placed in an exam room, on a stretcher. cm10 20:54 Potter, Belén is Primary Nurse. cp4 20:59 Bed in low position. Call light in reach. Side rails up X2. cp4 20:59 No provider procedures requiring assistance completed. cp4 21:20 Inserted saline lock: 20 gauge in right antecubital area, using aseptic technique. oe Blood collected. Flushed with 10 mL NS. 21:36 Warm blanket given. oe 21:36 Diet: Patient given snack. Patient given juice. oe 21:36 Urine collected: clean catch specimen, elaine colored. oe 22:03 [facility]. f 07/15 00:49 Provided Education on: auditory hallucinations. cp4 00:49 intact, bleeding controlled, No redness/swelling at site. Pressure dressing applied. cp4 Administered Medications: No medications were administered Medication: 07/14 20:59 VIS not applicable for this client. cp4 Outcome: 07/15 00:31 Discharge ordered by MD. rt 00:49 Discharged to home ambulatory, cp4 00:49 Condition: stable 00:49 Discharge instructions given to patient, Instructed on discharge instructions, follow up and referral plans. Demonstrated understanding of instructions, follow-up care, Instructed to follow up with [facility]. 00:50 Patient left the ED. cp4 Signatures: Judie Patterson, Reg Reg mr Syd Longo oe Mariah Milton, RN RN vc1 Van Baker MD MD rt Nereida Dawson RN RN cm10 Belén Torres cp4 Eve Medina kmf
--- NOTE | 2024-07-15 00:32 | EDPHYS ---
Physician Documentation [facility] Name: Clarissa Davis Age: 24 yrs Sex: Female : 2000 Arrival Date: 07/14/2024 Time: 20:03 Bed 17 Private MD: ED Physician Van Baker HPI: 07/14 21:08 This 24 yrs old Female presents to ER via Ambulatory with complaints of Mental rt evaluation. 21:08 Patient with history of schizophrenia presents to the ED with reported crisis. Patient rt has been hearing voices of her ex-boyfriend in [place]. States that she has a big thoughts of wanting to kill him. Denies suicidal thoughts. Reportedly was very angry with family earlier, police were called. Denies physical symptoms at this time, symptoms are moderate in severity, no other aggravating or alleviating factors.. 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 - Infectious Disease History:: Denies. - Social history:: Smoking status: Patient reports the use of cigarette tobacco products, denies chronic smoking, but will smoke occasionally. - Family history:: not pertinent. ROS: 21:08 Constitutional: Negative for fever, chills, and weight loss, Cardiovascular: Negative rt for chest pain, palpitations, and edema, Respiratory: Negative for shortness of breath, cough, wheezing, and pleuritic chest pain, Abdomen/GI: Negative for abdominal pain, nausea, vomiting, diarrhea, and constipation, MS/Extremity: Negative for injury and deformity, Skin: Negative for injury, rash, and discoloration, Neuro: Negative for headache, weakness, numbness, tingling, and seizure, 21:08 Psych: Positive for auditory hallucinations, homicidal ideation, Exam: 21:08 Constitutional: This is a well developed, well nourished patient who is awake, alert, rt and in no acute distress. Head/Face: Normocephalic, atraumatic. Chest/axilla: Normal chest wall appearance and motion. Nontender with no deformity. No lesions are appreciated. Cardiovascular: Regular rate and rhythm with a normal S1 and S2. No gallops, murmurs, or rubs. Normal PMI, no JVD. No pulse deficits. Respiratory: Lungs have equal breath sounds bilaterally, clear to auscultation and percussion. No rales, rhonchi or wheezes noted. No increased work of breathing, no retractions or nasal flaring. Abdomen/GI: Soft, non-tender, with normal bowel sounds. No distension or tympany. No guarding or rebound. No evidence of tenderness throughout. Skin: Warm, dry with normal turgor. Normal color with no rashes, no lesions, and no evidence of cellulitis. MS/ Extremity: Pulses equal, no cyanosis. Neurovascular intact. Full, normal range of motion. Neuro: Awake and alert, GCS 15, oriented to person, place, time, and situation. Cranial nerves II-XII grossly intact. Motor strength 5/5 in all extremities. Sensory grossly intact. Cerebellar exam normal. Normal gait. Vital Signs: 20:38 BP 119 / 86; Pulse 102; Resp 16; Temp 97.4(IR); Pulse Ox 98% on R/A; Weight 69.4 kg; cm10 Height 5 ft. 4 in. ; Pain 0/10; 07/15 00:47 BP 117 / 86; Pulse 89; Resp 18; Temp 97.4; Pulse Ox 99% ; cp4 07/14 20:38 Body Mass Index 26.26 (69.40 kg, 162.56 cm) cm10 07/14 20:38 Pain Scale: Adult cm10 MDM: 07/14 20:48 Patient medically screened. rt 07/15 01:21 Differential Diagnosis Schizophrenia, adjustment disorder. Data reviewed: vital signs, rt nurses notes, lab test result(s). Consideration of Admission/Observation Escalation of care including admission/observation considered. Patient evaluated by fransisco Leon, states that they do not believe the patient is an threat to her self nor others nor is she gravely disabled. The ex-boyfriend question lives in [place], not locally. Patient is living here. Outpatient resources were given to the patient.. Care significantly affected by the following chronic conditions: Schizophrenia. Response to treatment: the patient's symptoms have markedly improved after treatment. 07/14 21: Order name: Acetaminophen; Complete Time: 22:01 rt 07/14 21:07 Order name: Basic Metabolic Panel; Complete Time: 22: rt 07/14 21:07 Order name: CBC with Diff; Complete Time: : rt 07/14 21:07 Order name: ETOH Level; Complete Time: 22: rt 07/14 21:07 Order name: Hepatic Function; Complete Time: 22: rt 07/14 21:07 Order name: PT-INR; Complete Time: : rt 07/14 21:07 Order name: Test, Urine; Complete Time: : rt 07/14 21:07 Order name: Ptt, Activated; Complete Time: 22: rt 07/14 21:07 Order name: Salicylate; Complete Time: 22: rt 07/14 21:07 Order name: Urinalysis w/ reflexes; Complete Time: : rt 07/14 21:07 Order name: Urine Drug Screen; Complete Time: 22: rt 07/14 21:07 Order name: IV Saline Lock; Complete Time: :27 rt 07/14 21:07 Order name: Labs collected and sent; Complete Time: :27 rt 07/14 21:07 Order name: Suicide Screening ([place]); Complete Time: 21:27 rt Administered Medications: No medications were administered Disposition Summary: 07/15/24 00:31 Discharge Ordered Notes: Location: Home rt Problem: new rt Symptoms: have improved rt Condition: Stable rt Diagnosis - Auditory hallucinations rt Followup: rt - With: Private Physician - When: 2 - 3 days - Reason: Discharge Instructions: - Discharge Summary Sheet rt - Schizophrenia rt Forms: - Medication Reconciliation Form rt - Antibiotic Education rt - Prescription Opioid Use rt - Patient Portal Instructions rt - Leadership Thank You Letter rt Signatures: Dispatcher [employer] EDVan Rapp MD MD rt Nereida Dawson RN RN cm10 Corrections: (The following items were deleted from the chart) 07/14 21: 21:07 ACETAMINOPHEN+C.LAB.BRZ ordered. EDMS EDMS : 21:07 BASIC METABOLIC PANEL+C.LAB.BRZ ordered. EDMS EDMS 21:07 CBC+H.LAB.BRZ ordered. EDMS EDMS : 21: ETHANOL+C.LAB.BRZ ordered. EDMS EDMS 21: HEPATIC FUNCTION+C.LAB.BRZ ordered. EDMS EDMS : 21: PROTIME (+INR)+COAG.LAB.BRZ ordered. EDMS EDMS 21: Test, Urine+UC.LAB.BRZ ordered. EDMS EDMS 21: PTT, ACTIVATED+COAG.LAB.BRZ ordered. EDMS EDMS : 21:07 SALICYLATE+C.LAB.BRZ ordered. EDMS EDMS : 21:07 Urinalysis+U.LAB.BRZ ordered. EDMS EDMS : 21:07 URINE DRUG SCREEN+UC.LAB.BRZ ordered. EDMS EDMS
[2024-07-15 01:00] VITALS: TEMP 97.4
[2024-07-15 01:06] VITALS: BP 117/86; O2SAT 99
== END 2024-07-15 00:50 | disposition home or self-care (01) ==
LOC: ER 20:03
DX: R44.0 Auditory hallucinations (principal); F17.210 Nicotine dependence, cigarettes, uncomplicated
CPT/HCPCS: 36415; 80048; 80076; 80143; 80179; 80307; 81003; 81025; 82077; 85025; 85610; 85730; 99284

== ENCOUNTER 2024-08-08 19:57 | Emergency (ER) | payer BC ==
--- OUTSIDE RECORDS SUMMARY | 2024-08-08 20:00 | XMS REPORT | Continuity of Care Document ---
Author Name Unknown Address [address] [place] [address] [facility] Address 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 Role Phone Anthony Rhodes Attending Clinician Unavailable Payers Payer Name Policy Type Policy Number Effective Date Expirati on Date Source Allergies, Adverse Reactions, Alerts Allergy Name Allergy Type Status Severity Reaction(s) Onset Date Inactive Date Treating Clinician Comments Source No Known Drug Allergie s DA Active U 07-17 00:00: 00 [facility] Encounters Start Date/Time End Date/Time Encounter Type Admission Type Attending Clinicians Care Facility Care Department Encounter ID Source 2023-07-17 08:29:00 2023-07-17 08:29:00 Emergency Emergency Anthony Rhodes [facility] [id number] [address] [place] [address] 2023-07-17 08:29:00 2023-07-17 08:29:00 Emergency [facility] [id number] [address] [place] [address] Results Test Description Test Time Test Comments Results Result Co mments Source HCG, Serum Qual (LAB)2023-07-17 09:44:00* Test Item Value Reference Range Interpretation Comme nts HCG, Serum Qual (LAB) (test code = HCGQ) Negative Negative Comprehensive Metabolic [id number] 09:44:00* Test Item Value Reference Range Interpretation [...] a race coefficient. Additional information canbe found at:[id number] ([email or web address]) [Automated message] The system [...] = ALP) 83 U/L 46-116 N Creatine [id number] 09:44:00* Test Item Value Reference Range Interpretation Comme nts Creatine Kinase (test code = CK) 95 U/L 46-171 N Ethanol [id number] 09:44:00* Test Item Value Reference Range Interpretation Comme nts Ethanol (test code = ETOH) < 3 mg/dL The pharmacologi jagdish response to blood alcohol levels mayvary from individual to individual. The fatal concentrationhas been reported to be >400mg/dL.
--- NOTE | 2024-08-08 21:28 | RAD REPORT ---
EXAMINATION: ONE VIEW CHEST XR CLINICAL INDICATION: Female, 24 years old.,COUGH TECHNIQUE: Frontal chest projection is submitted. Examination is limited by patient positioning and t echnique. COMPARISON: No prior exam. FINDINGS: The lungs are well inflated and clear. No pneumothorax or sizable effusion. The heart is normal in s ize. IMPRESSION: No acute intrathoracic abnormalities.
--- NOTE | 2024-08-08 21:39 | EDPHYS ---
Physician Documentation [facility] Name: Clarissa Davis Age: 24 yrs Sex: Female : 2000 Arrival Date: 08/08/2024 Time: 19:57 Bed 4 Private MD: ED Physician Carl Wei HPI: 08/08 20:09 This 24 yrs old Female presents to ER via Unassigned with complaints of kb Allergy Symptoms, Shortness Of Breath. 20:09 Pt is a 24 year old female who presents for a cough that started one month ago. States kb she is a smoker so she thinks that is the cause. Denies fever, congestion, runny nose. . 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 - Infectious Disease History:: Denies. - Social history:: Smoking status: Patient reports the use of cigarette tobacco products, 2 cigs/day. ROS: 20:10 Constitutional: As per HPI kb Exam: 20:10 Constitutional: This is a well developed, well nourished patient who is awake, alert, kb and in no acute distress. Head/Face: Normocephalic, atraumatic. ENT: Moist Mucous membranes Cardiovascular: Regular rate Respiratory: Respirations even and unlabored. No increased work of breathing. Talking in full sentences Abdomen/GI: Soft, non-tender. No distention Skin: Warm, dry with normal turgor. Normal color. MS/ Extremity: Pulses equal, no cyanosis. Neurovascular intact. Full, normal range of motion. Neuro: Awake and alert, GCS 15, oriented to person, place, time, and situation. Moves all extremities. Normal gait. Vital Signs: 20:14 Weight 67.59 kg; Height 5 ft. 4 in. ; Pain 4/10; vc1 20:22 BP 111 / 78; Pulse 108; Resp 20; Temp 98.9; Pulse Ox 98% ; vc1 21:02 BP 109 / 49; Pulse 94; Resp 18; Pulse Ox 92% ; me1 21:41 BP 101 / 65; Pulse 108; Resp 16; Pulse Ox 95% on R/A; jb4 20:14 Body Mass Index 25.58 (67.59 kg, 162.56 cm) vc1 20:14 Pain Scale: Adult vc1 MDM: 20:37 Patient medically screened. kb 21:37 Data reviewed: vital signs, nurses notes. kb 21:37 Differential diagnosis: asthma, pneumonia, viral infection. Historians other than the kb Patient: Parent: mother. Counseling: I had a detailed discussion with the patient and/or guardian regarding the historical points, exam findings, and any diagnostic results supporting the discharge/admit diagnosis, radiology results, the need for outpatient follow up, a family practitioner, to return to the emergency department if symptoms worsen or persist or if there are any questions or concerns that arise at home. 08/08 20:12 Order name: Chest Single View XRAY; Complete Time: 21:32 kb Administered Medications: No medications were administered Disposition: 23:51 Co-signature as Attending Physician, Carl Wei MD I agree with the assessment sp4 and plan of care. I reviewed the patient's care provided by the Advanced Practice Provider and agree with the diagnosis and treatment plan. Disposition Summary: 08/08/24 21:39 Discharge Ordered Notes: Location: Home kb Condition: Stable kb Diagnosis - Cough kb Followup: kb - With: Emergency Department - When: As needed - Reason: Worsening of condition Followup: kb - With: Private Physician - When: 2 - 3 days - Reason: Recheck today's complaints, Continuance of care, Re-evaluation by your physician Discharge Instructions: - Discharge Summary Sheet kb - Cough, Adult, Eltt-cn-Lnbi kb Forms: - Medication Reconciliation Form kb - Antibiotic Education kb - Prescription Opioid Use kb - Patient Portal Instructions kb - Leadership Thank You Letter kb Prescriptions: - Tessalon Perles 100 mg Oral Capsule - take 1 capsule ORAL route every 8 hours As needed; 15 capsule; Refills: 0, kb Product Selection Permitted Signatures: Dispatcher [employer] Denisha Govea FNP-C FNP-Ckb Calcote, Vanessa, RN RN vc1 Carl Wei MD MD sp4
--- NOTE | 2024-08-08 21:39 | ER ---
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 SOB today. Coronavirus screen: Vaccine status: Patient reports receiving the 2nd dose of the covid vaccine. cough unrelated to allergies, shortness of breath. Coronavirus screen: sore throat. Ebola Screen:. Onset: The symptoms/episode began/occurred 3 week(s) ago. Anaphylaxis evaluation, no signs or symptoms of anaphylaxis were noted. Initial Sepsis Screen: Does the patient meet any 2 criteria? No. Patient's initial sepsis screen is negative. Does the patient have a suspected source of infection? No. Patient's initial sepsis screen is negative. Risk Assessment: Do you want to hurt yourself or someone else? Patient reports no desire to harm self or others. Onset of symptoms is unknown. 20:14 Method Of Arrival: Ambulatory vc1 20:14 Acuity: SHADY 3 vc1 20:21 Note Used Attorney At Law Srikanth [id number]. vc1 Triage Assessment: 20:26 General: Appears in no apparent distress. ill, well groomed, well developed, well vc1 nourished, Behavior is calm, cooperative, appropriate for age. Pain: Complains of pain in sore throat. EENT: Reports pain in throat. Neuro: Level of Consciousness is awake, alert, obeys commands, Oriented to person, place, time, situation, Appropriate for age. Cardiovascular: Denies chest pain, Capillary refill < 3 seconds Patient's skin is warm and dry. Respiratory: Reports cough that is non-productive, persistent since 3 weeks Airway is patent Respiratory effort is even, unlabored, Respiratory pattern is regular, symmetrical, Onset: The symptoms/episode began/occurred 3 weeks. Derm: Skin is intact, is healthy with good turgor, Skin is dry, Skin is normal, Skin temperature is warm. 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 - Infectious Disease History:: Denies. - Social history:: Smoking status: Patient reports the use of cigarette tobacco products, 2 cigs/day. Screenin:28 [facility] ED Fall Risk Assessment (Adult) History of falling in the last 3 months, vc1 including since admission No falls in past 3 months (0 pts) Confusion or Disorientation No (0 pts) Intoxicated or Sedated No (0 pts) Impaired Gait No (0 pts) Mobility Assist Device Used No (0 pt) Altered Elimination No (0 pt) Score/Fall Risk Level 0 - 2 = Low Risk Oriented to surroundings, Maintained a safe environment, Educated pt \T\ family on fall prevention, incl call for assistance when getting out of bed. Abuse screen: Denies threats or abuse. Nutritional screening: No deficits noted. Tuberculosis screening: No symptoms or risk factors identified. Assessment: 21:03 General: Appears ill, well groomed, well developed, well nourished, Behavior is calm, me1 cooperative, appropriate for age, Reports cough with SOB that started today. Pain: Denies pain. Neuro: Level of Consciousness is awake, alert, obeys commands, Oriented to person, place, time, situation, Appropriate for age. Cardiovascular: Patient's skin is warm and dry. Respiratory: Reports shortness of breath at rest on exertion since earlier today cough that is hacking, persistent Airway is patent Respiratory effort is even, unlabored, Respiratory pattern is regular, symmetrical, Breath sounds are clear bilaterally. GI: No signs and/or symptoms were reported involving the gastrointestinal system. : No signs and/or symptoms were reported regarding the genitourinary system. EENT: No signs and/or symptoms were reported regarding the EENT system. Derm: Skin is intact, is healthy with good turgor, Skin is pink, warm \T\ dry. Musculoskeletal: No signs and/or symptoms reported regarding the musculoskeletal system. 21:41 Reassessment: Patient appears in no apparent distress at this time. Patient and/or jb4 family updated on plan of care and expected duration. Pain level reassessed. Patient is alert, oriented x 3, equal unlabored respirations, skin warm/dry/pink. Vital Signs: 20:14 Weight 67.59 kg; Height 5 ft. 4 in. ; Pain 4/10; vc1 20:22 BP 111 / 78; Pulse 108; Resp 20; Temp 98.9; Pulse Ox 98% ; vc1 21:02 BP 109 / 49; Pulse 94; Resp 18; Pulse Ox 92% ; me1 21:41 BP 101 / 65; Pulse 108; Resp 16; Pulse Ox 95% on R/A; jb4 20:14 Body Mass Index 25.58 (67.59 kg, 162.56 cm) vc1 20:14 Pain Scale: Adult vc1 ED Course: 20:06 Patient arrived in ED. jj6 20:07 Den[facility] Cortez [facility]-C [facility] kb 20:07 Carl Wei MD is Attending Physician. kb 20:20 Triage completed. vc1 20:21 Arm band placed on right wrist. vc1 20:37 Chest Single View XRAY In Process Unspecified. EDMS 20:57 Bri Ames, RN is Primary Nurse. me1 21:03 Patient has correct armband on for positive identification. Bed in low position. Call me1 light in reach. Side rails up X 1. Provided Education on: POC. Verbalized understanding. . Client placed on continuous cardiac and pulse oximetry monitoring. NIBP monitoring applied. Pulse ox on. NIBP on. 21:03 No provider procedures requiring assistance completed. me1 Administered Medications: No medications were administered Medication: 21:03 VIS not applicable for this client. me1 Outcome: 21:39 Discharge ordered by . kb 21:49 Discharged to home ambulatory, with family, jb4 21:49 Condition: stable 21:49 Discharge instructions given to family, Instructed on discharge instructions, follow up and referral plans. medication usage, Demonstrated understanding of instructions, follow-up care, medications, Prescriptions given X 1, 21:49 Patient left the ED. jb4 Signatures: Dispatcher [employer]Host EDIA Denisha Cortez FNP-C FNP-Ckb Bryson, James, RN RN jb4 Sue Moreau jj6 Mariah Milton RN RN vc1 Bri Ames, RN RN me1 Corrections: (The following items were deleted from the chart) 21:05 21:03 General: Appears me1 me1
[2024-08-09 00:43] VITALS: TEMP 98.9
[2024-08-09 00:47] VITALS: BP 101/65; O2SAT 95
== END 2024-08-08 21:49 | disposition home or self-care (01) ==
LOC: ER 19:57
DX: R05.9 Cough, unspecified (principal); R06.02 Shortness of breath; F17.210 Nicotine dependence, cigarettes, uncomplicated
CPT/HCPCS: 71045

== ENCOUNTER 2024-08-11 15:57 | Emergency (ER) | payer BC, OTHER ==
--- OUTSIDE RECORDS SUMMARY | 2024-08-11 16:01 | XMS REPORT | Continuity of Care Document ---
Author Name Unknown Address [address] [place] [address] [address] [place] [address] [facility] Address [address] [facility] [address] [place] [address] Care Team Providers Care Media Intern Name Role Phone ANJUM ORTEGA Attending Clinician Anthony Rodriguez Attending Clinician Unavailable Payers Payer Name Policy Type Policy Number Effective Date Expirati on Date Source [facility] TRESSA SILVER-D COPAY FOCUS 9 [id number] 2024 00:00:00 Allergies, Adverse Reactions, Alerts Allergy Name Allergy Type Status Severity Reaction(s) Onset Date Inactive Date Treating Clinician Comments Source No Known Drug Allergie s DA Active U 07-17 00:00: 00 [facility] Encounters Start Date/Time End Date/Time Encounter Type Admission Type Attending Clinicians Care Facility Care Department Encounter ID Source 2024-11-09 10:45:00 2024-11-09 10:45:00 Outpatient ANJUM ORTEGA [id number] Eve Longo 2023-07-17 08:29:00 2023-07-17 08:29:00 Emergency Emergency Anthony Rhodes [facility] [id number] [facility] 2023-07-17 08:29:00 2023-07-17 08:29:00 Emergency [facility] [id number] [facility] Results Test Description Test Time Test Comments Results Result Co mments Source Complete Blood Count Auto [id number] 09:44:00* Test Item Value Reference Range Interpretation Comme nts White Blood Count (test code = WBCT) 8.8 x10 3/uL 4.4-10.5 N Red Blood Count (test code = RBC) 4.79 x10 6/uL 3.75-5.20 N Hemoglobin (test code = HGBT) 11.9 g/dL 12.2-14.8 L Hematocrit (test code = HCTT) 37.1 % 36.5-44.4 N Mean Corpuscular Volume (veronique t code = MCV) 77.50 fL 80.00-100.00 L Mean Corpuscular Hemoglobin (test code = MCH) 24.8 pg 27.0-32.5 L Mean Corpuscular HGB Conc (t est code = MCHC) 32.10 g/dL 32.00-37.50 N RDW Coefficient of Variation (test code = RDWCV) 14.4 % 11.5-14.5 N Platelet Count (test code = PLTT) 261 x10 3/uL 140.0-440.0 N Mean Platelet Volume (test c ode = MPV) 11.6 fL Immature Granulocytes % (Aut o) (test code = IMMGRAN%) 0.5 % 0.0-5.0 N Neutrophils % (Auto) (test c ode = NE%) 70.1 % 36.0-70.0 H Lymphocytes % (Auto) (test c ode = LY%) 19.1 % 12.0-44.0 N Monocytes % (Auto) (test cod e = MO%) 5.8 % 0.0-11.0 N Eosinophils % (Auto) (test c ode = EO%) 4.0 % 0.0-7.0 N Basophils % (Auto) (test cod e = BA%) 0.5 % 0.0-2.0 N Immature Granulocytes # (Aut o) (test code = IMMGRAN#) 0.04 x10 3/uL Neutrophils # (Auto) (test c ode = NE#) 6.2 x10 3/uL 1.6-7.4 N Lymphocytes # (Auto) (test c ode = LY#) 1.68 x10 3/uL 0.50-4.60 N Monocytes # (Auto) (test cod e = MO#) 0.51 x10 3/uL 0.00-1.20 N Eosinophils # (Auto) (test c ode = EO#) 0.35 x10 3/uL 0.00-0.74 N Basophils # (Auto) (test cod e = BA#) 0.04 x10 3/uL 0.00-0.21 N nRBC Abs (test code = NRBCA) 0 nRBC Pct (test code = NRBCP) 0 % HCG, Serum Qual (LAB)2023-07-17 09:44:00* Test Item Value Reference Range Interpretation Comme nts HCG, Serum Qual (LAB) (test code = HCGQ) Negative Negative Comprehensive Metabolic [id number] 09:44:00* Test Item Value Reference Range Interpretation [...] a race coefficient. Additional information canbe found at:[id number] ([email or web address]) [Automated message] The system [...] = ALP) 83 U/L 46-116 N Creatine [id number] 09:44:00* Test Item Value Reference Range Interpretation Comme nts Creatine Kinase (test code = CK) 95 U/L 46-171 N
[2024-08-11] MEDS ORDERED: ALBUTEROL 2.5 MG/3 ML NEB SOL ONE (16:54)
[2024-08-11] MEDS ORDERED: ONDANSETRON 4 MG/2 ML VIAL ONE (16:54)
[2024-08-11] MEDS ORDERED: IPRATROPIUM BROM 0.5MG/2.5ML ONE (16:54)
[2024-08-11] MEDS ORDERED: NA CHLORIDE 0.9% 1,000 ML ONE ×2 (16:54→18:03)
[2024-08-11 17:17] LABS: Absolute Eosinophils 0.5 K/uL (0-0.5); Absolute Lymphocytes (CBC) 1.7 K/uL (0.7-4.9); Absolute Monocytes 0.5 K/uL (0.1-1.3); Absolute Neutrophil 3.2 K/uL (1.8-8.0); Basophils % 0.8 % (0-1.3); Eosinophils % 8.7 % (0-4.4); Hematocrit 36.1 % (36.0-45.0); Hemoglobin 11.8 g/dL (12.0-15.0); Lymphocytes % 28.6 % (15.3-44.8); MCH 25.7 pg (27.0-35.0); MCHC 32.7 g/dL (32.0-36.0); MCV 78.8 fL (80-100); MPV 7.9 fL (7.6-11.3); Monocytes % 8.5 % (3.3-12.3); Neutrophils % 53.4 % (41.7-73.7); Platelets 168 thou/uL (152-406); RBC Red Blood Cell Count 4.58 M/uL (3.86-4.86); Red Cell Distribution Width 16.1 % (12.1-15.2)
[2024-08-11 17:30] LABS: Anion Gap 8.1 mEq/L (5.0-15.0); Potassium 5.1 mEq/L (3.5-5.1)
[2024-08-11 18:17] LABS: SARS-CoV-2 Antigen CONTROL BLUE LINE VIS/BG OK; SARS-CoV-2 Antigen Rapid Res Negative (Negative)
--- NOTE | 2024-08-11 18:53 | ER ---
Nurse's Notes [facility] Name: Clarissa Davis Age: 24 yrs Sex: Female : 2000 Arrival Date: 08/11/2024 Time: 15:57 Bed 19 Private MD: Diagnosis: Acute Kidney Injury;Dehydration;Viral infection, unspecified Presentation: 08/11 16:09 Chief complaint: Patient states: cough that began 2 weeks ago. aa5 16:09 Coronavirus screen: cough unrelated to allergies. Ebola Screen: Patient denies travel aa5 to an Ebola-affected area in the 21 days before illness onset. Initial Sepsis Screen: Does the patient meet any 2 criteria? HR > 90 bpm. Does the patient have a suspected source of infection? No. Patient's initial sepsis screen is negative. Risk Assessment: Do you want to hurt yourself or someone else? Patient reports no desire to harm self or others. Onset of symptoms was July 2024. 16:09 Method Of Arrival: Ambulatory aa5 16:09 Acuity: SHADY 3 aa5 Historical: - Allergies: 16:09 No Known Allergies; aa5 - PMHx: 16:09 Asthma; Bilat Breast Reduction; Bipolar disorder; Schizophrenia; aa5 - PSHx: 16:09 Bilateral breast reduction; aa5 - Immunization history:: Adult Immunizations unknown. - Infectious Disease History:: Denies. - Social history:: Smoking status: Patient denies any tobacco usage or history of. Screenin:[facility] ED Fall Risk Assessment (Adult) History of falling in the last 3 months, ph including since admission No falls in past 3 months (0 pts) Confusion or Disorientation No (0 pts) Intoxicated or Sedated No (0 pts) Impaired Gait No (0 pts) Mobility Assist Device Used No (0 pt) Altered Elimination No (0 pt) Score/Fall Risk Level 0 - 2 = Low Risk Oriented to surroundings, Maintained a safe environment, Hourly rounding (assess needs \T\ fall precautionary measures) done. Abuse screen: Denies threats or abuse. Denies injuries from another. Nutritional screening: No deficits noted. Tuberculosis screening: No symptoms or risk factors identified. Assessment: 17:00 General: Appears in no apparent distress. comfortable, Behavior is calm, cooperative, ph appropriate for age. Pain: Denies pain. Neuro: Level of Consciousness is awake, alert, obeys commands, Oriented to person, place, time, situation. Cardiovascular: Capillary refill < 3 seconds in bilateral fingers Patient's skin is warm and dry. Respiratory: Reports shortness of breath cough that is Airway is patent Respiratory effort is even, unlabored. GI: Reports nausea, vomiting. Derm: Skin is pink, warm \T\ dry. 18:55 Reassessment: Patient appears in no apparent distress at this time. Patient and/or ph family updated on plan of care and expected duration. Pain level reassessed. Patient is alert, oriented x 3, equal unlabored respirations, skin warm/dry/pink. D/C pending completion of IV fluids. 19:17 Reassessment: Patient is alert, oriented x 3, equal unlabored respirations, skin rg5 warm/dry/pink. Patient states feeling better. General: Appears in no apparent distress. Behavior is calm, cooperative, appropriate for age. Neuro: Level of Consciousness is awake, alert, obeys commands. Cardiovascular: Patient's skin is warm and dry. Rhythm is sinus rhythm. Respiratory: Airway is patent Trachea midline Respiratory effort is even, unlabored, Respiratory pattern is regular. Vital Signs: 16:09 BP 115 / 69; Pulse 104; Resp 20 S; Temp 97.7(TE); Pulse Ox 97% on R/A; Weight 65.32 kg aa5 (R); Height 5 ft. 4 in. (R); 18:20 BP 116 / 78; Pulse 90; Resp 18; Pulse Ox 98% on R/A; ph 19:05 BP 126 / 89; Pulse 88; Resp 17; Temp 97.8(O); Pulse Ox 99% on R/A; Pain 0/10; rg5 16:09 Body Mass Index 24.72 (65.32 kg, 162.56 cm) aa5 19:05 Pain Scale: Adult rg5 ED Course: 16:02 Patient arrived in ED. ra3 16:03 George Zapien MD is Attending Physician. ec2 16:09 Arm band placed on. aa5 16:11 Triage completed. aa5 16:36 Teena Brown, CYNTHIA is Primary Nurse. ph 17:15 SARS RAPID Sent. ph 17:15 Influenza Screen (a \T\ B) Sent. ph 17:15 BMP Sent. ph 17:15 CBC with Diff Sent. ph 18:21 Patient has correct armband on for positive identification. Placed in gown. Bed in low ph position. Call light in reach. Side rails up X 1. Pulse ox on. NIBP on. Door closed. Noise minimized. Lights dimmed. Warm blanket given. Pillow given. 18:21 No provider procedures requiring assistance completed. ph 18:53 CXR XRAY In Process Unspecified. EDMS 19:19 IV discontinued, bleeding controlled, No redness/swelling at site. Pressure dressing rg5 applied. 19:20 Provided Education on: POST ER CARE. rg5 Administered Medications: 17:14 Drug: Ondansetron IVP 4 mg IVP once; over 2 minutes Route: IVP; Site: right antecubital;ph 18:20 Follow up: Response: No adverse reaction ph 17:14 Drug: NS 0.9% IV 1000 ml IV at 1 bolus Per protocol; to be given as a bolus over 60 ph minutes Route: IV; Rate: 1 bolus; Site: right antecubital; 18:20 Follow up: Response: No adverse reaction; IV Status: Completed infusion; IV Intake: ph 1000ml 17:15 Drug: DuoNeb Nebulize (3:1) (2.5 mg - 0.5 mg) 3 ml Nebulizer once Route: Nebulizer; ph 18:20 Follow up: Response: No adverse reaction ph 18:17 Drug: NS 0.9% IV 1000 ml IV at 1000 ml once; to be given as a bolus over 60 minutes ph Route: IV; Rate: 1000 ml; Site: right antecubital; 19:15 Follow up: IV Status: Completed infusion; IV Intake: 1000ml rg5 19:05 Drug: Amoxicillin-Clavulanate PO 875 mg PO once Route: PO; rg5 19:16 Follow up: Response: No adverse reaction rg5 Medication: 18:21 VIS not applicable for this client. ph Intake: 18:20 IV: 1000ml; Total: 1000ml. ph 19:15 IV: 1000ml; Total: 2000ml. rg5 Outcome: 18:52 Discharge ordered by ec2 19:19 Discharged to home ambulatory, rg5 19:19 Condition: stable 19:19 Discharge instructions given to patient, 19:20 Patient left the ED. rg5 Signatures: Dispatcher [employer] EDAlexys Jaramillori, RN RN aa5 Teena Brown RN RN George Zapien MD MD ec2 Yue Alejandre ra3 Ike Ness RN RN rg5 Corrections: (The following items were deleted from the chart) 16:13 16:09 Pulse 104bpm; Resp 20bpm; Spontaneous; Pulse Ox 97% RA; Temp 97.7F Temporal; aa5 65.32 kg Reported; Height 5 ft. 4 in. Reported; BMI: 24.7; aa5 16:18 16:09 Acuity: SHADY 4 aa5 aa5
--- NOTE | 2024-08-11 18:53 | EDPHYS ---
Physician Documentation [facility] Name: Clarissa Davis Age: 24 yrs Sex: Female : 2000 Arrival Date: 08/11/2024 Time: 15:57 Bed 19 Private MD: ED Physician George Zapien HPI: 08/11 17:37 This 24 yrs old Female presents to ER via Ambulatory with complaints of Cough ec2 - Asthma. 17:37 Patient arrives today for evaluation of URI signs and symptoms ongoing with decreased ec2 p.o. intake along with nausea. No significant medical problems, reported history of asthma however does not seem as if there have been pulmonary function test completed for the patient.. Historical: - Allergies: 16:09 No Known Allergies; aa5 - PMHx: 16:09 Asthma; Bilat Breast Reduction; Bipolar disorder; Schizophrenia; aa5 - PSHx: 16:09 Bilateral breast reduction; aa5 - Immunization history:: Adult Immunizations unknown. - Infectious Disease History:: Denies. - Social history:: Smoking status: Patient denies any tobacco usage or history of. ROS: 17:37 Constitutional: as per hpi ec2 Exam: 17:37 Constitutional: GEN: NAD Head: atraumatic Eyes: EOMI Ears: External ears are ec2 normal. CV: Tachycardia LUNGS: no respiratory distress, no wheezes, no rales, no rhonchi ABD: non-distended SKIN: no evidence of rashes MSK: no evidence of trauma Vital Signs: 16:09 BP 115 / 69; Pulse 104; Resp 20 S; Temp 97.7(TE); Pulse Ox 97% on R/A; Weight 65.32 kg aa5 (R); Height 5 ft. 4 in. (R); 18:20 BP 116 / 78; Pulse 90; Resp 18; Pulse Ox 98% on R/A; ph 19:05 BP 126 / 89; Pulse 88; Resp 17; Temp 97.8(O); Pulse Ox 99% on R/A; Pain 0/10; rg5 16:09 Body Mass Index 24.72 (65.32 kg, 162.56 cm) aa5 19:05 Pain Scale: Adult rg5 MDM: 17:37 Data reviewed: vital signs. ED course: Patient arrives today for evaluation of URI ec2 signs and symptoms. Examination remarkable for slightly tachycardic individuals otherwise in no acute respiratory distress. Will obtain lab work given the patient's reported duration of symptoms as well as tachycardia. Suspect viral infection.. 17:38 ED course: Labs are remarkable for renal dysfunction with an elevated creatinine.. ec2 18:45 ED course: Ultimately suspect patient's poor p.o. intake the cause of the patient's ec2 MARICHUY, patient with improvement in nausea after antiemetic, is tolerating p.o. intake. I discussed with patient and mother regarding continued fluid resuscitation at home and ultimately we felt she could be appropriate for at home fluid resuscitation with PCP follow-up. . 18:52 ED course: Chest x-ray independently reviewed and interpreted by me, shows no acute ec2 intrathoracic process. Will discharge home and continue to p.o. challenge at home, patient with improving tachycardia. Return precautions given. . 18:52 Patient medically screened. ec2 19:00 ED course: Radiology with possible infiltrate, will empirically treat with Augmentin.. ec2 1012 16:18 Order name: CBC with Diff; Complete Time: 17:35 ec2 1012 16:18 Order name: BMP; Complete Time: 17:35 ec2 1012 16:28 Order name: Influenza Screen (a \T\ B); Complete Time: 18:31 ec2 08/11 16:28 Order name: SARS RAPID; Complete Time: 18:31 ec2 1012 18:32 Order name: CXR XRAY; Complete Time: 18:58 ec2 Administered Medications: 17:14 Drug: Ondansetron IVP 4 mg IVP once; over 2 minutes Route: IVP; Site: right antecubital;ph 18:20 Follow up: Response: No adverse reaction ph 17:14 Drug: NS 0.9% IV 1000 ml IV at 1 bolus Per protocol; to be given as a bolus over 60 ph minutes Route: IV; Rate: 1 bolus; Site: right antecubital; 18:20 Follow up: Response: No adverse reaction; IV Status: Completed infusion; IV Intake: ph 1000ml 17:15 Drug: DuoNeb Nebulize (3:1) (2.5 mg - 0.5 mg) 3 ml Nebulizer once Route: Nebulizer; ph 18:20 Follow up: Response: No adverse reaction ph 18:17 Drug: NS 0.9% IV 1000 ml IV at 1000 ml once; to be given as a bolus over 60 minutes ph Route: IV; Rate: 1000 ml; Site: right antecubital; 19:15 Follow up: IV Status: Completed infusion; IV Intake: 1000ml rg5 19:05 Drug: Amoxicillin-Clavulanate PO 875 mg PO once Route: PO; rg5 19:16 Follow up: Response: No adverse reaction rg5 Disposition Summary: 08/11/24 18:52 Discharge Ordered Notes: Location: Home ec2 Condition: Stable ec2 Diagnosis - Acute Kidney Injury ec2 - Dehydration ec2 - Viral infection, unspecified ec2 Followup: ec2 - With: Private Physician - When: - Reason: Re-evaluation by your physician Discharge Instructions: - Discharge Summary Sheet ec2 - Dehydration, Adult ec2 - Viral Illness, Adult ec2 Forms: - Medication Reconciliation Form ec2 - Antibiotic Education ec2 - Prescription Opioid Use ec2 - Patient Portal Instructions ec2 - Leadership Thank You Letter ec2 Prescriptions: - Augmentin 875-125 mg Oral Tablet - take 1 tablet ORAL route every 12 hours for 10 days; 20 tablet; Refills: 0, ec2 Product Selection Permitted - Zofran 4 mg Oral Tablet - take 1 tablet ORAL route every 12 hours As needed; 20 tablet; Refills: 0, ec2 Product Selection Permitted Signatures: Dispatcher [employer] Tram Kinsey, RN RN aa5 Teena Brown RN RN ph Brown, Sophia PAAnjelica PAAnjelica sb4 George Zapien MD MD ec2 Ike Ness RN RN rg5
--- NOTE | 2024-08-11 18:56 | RAD REPORT ---
EXAMINATION: ONE VIEW CHEST XR CLINICAL INDICATION: COUGH TECHNIQUE: Frontal chest projection is submitted. Examination is limited by patient positioning and t echnique. COMPARISON: 08/08/2024 FINDINGS: Mild triangular opacity in the left retrocardiac region suspicious for mild pneumonia. The lungs are grossly clear otherwise. The heart is normal in size. No displaced fractures identified. IMPRESSION: Mild infiltrate is suspected left retrocardiac region.
[2024-08-11] MEDS ORDERED: AMOX/K CLAV 875 MG TAB ONE (19:07)
[2024-08-11 23:07] VITALS: BP 126/89; TEMP 97.8; O2SAT 99
== END 2024-08-11 19:20 | disposition home or self-care (01) ==
LOC: ER 15:57
DX: N17.9 Acute kidney failure, unspecified (principal); E86.0 Dehydration; B34.9 Viral infection, unspecified; Z11.52 Encounter for screening for COVID-19
CPT/HCPCS: 85025; 80048; 36415; 87804 ×2; 71045; 87811; J7613; J7644; J2405; J7030 ×2; 96361; 96374; 99285

== ENCOUNTER 2024-08-14 03:12 | Observation (INO) | payer BC, OTHER ==
--- OUTSIDE RECORDS SUMMARY | 2024-08-14 03:15 | XMS REPORT | Continuity of Care Document ---
Author Name Unknown Address [address] [place] [address] [facility] Address [address] [place] [address] Care Team Providers Care Corporate Communications Intern Name Role Phone ANJUM ORTEGA Attending Clinician UnaLINDSEY Pena Attending Clinician Unavailable EDWIN LARA Attending Clinician Unavailab SCOTTY Shafer Attending Clinician Unavailable Anthony Rhodes Attending Clinician Unavailable Payers Payer Name Policy Type Policy Number Effective Date Expirati on Date Source [facility] TRESSA CORNELLAndrea COPAY FOCUS 9 [id number] 2024 00:00:00 Allergies, Adverse Reactions, Alerts Allergy Name Allergy Type Status Severity Reaction(s) Onset Date Inactive Date Treating Clinician Comments Source No Known Drug Allergie s DA Active U 07-17 00:00: 00 [facility] Encounters Start Date/Time End Date/Time Encounter Type Admission Type Attending Clinicians Care Facility Care Department Encounter ID Source 2024-11-09 10:45:00 2024-11-09 10:45:00 Outpatient ANJUM ORTEGA [id number] Eve Longo 2024-09-24 14:15:00 2024-09-24 14:15:00 Outpatient LINDSEY SHAH [id number] Eve Longo 2024-09-03 14:30:00 2024-09-03 14:30:00 Outpatient EDWIN LARA [id number] Eve Longo 2024-08-22 11:00:00 2024-08-22 11:00:00 Outpatient SCOTTY ORDONEZ [id number] Eve Longo 2023-07-17 08:29:00 2023-07-17 08:29:00 Emergency Emergency Anthony Rhodes [facility] [id number] 16 [facility] 2023-07-17 08:29:00 2023-07-17 08:29:00 Emergency [facility] [id number] 16 [facility] Results Test Description Test Time Test Comments Results Result Co mments Source Comprehensive Metabolic [id number] 09:44:00* Test Item Value Reference Range Interpretation [...] a race coefficient. Additional information canbe found at:[email or web address] ([email or web address]) [Automated message] The system [...] = ALP) 83 U/L 46-116 N Creatine [id number] 09:44:00* Test Item Value Reference Range Interpretation Comme nts Creatine Kinase (test code = CK) 95 U/L 46-171 N Ethanol [id number] 09:44:00* Test Item Value Reference Range Interpretation Comme nts Ethanol (test code = ETOH) < 3 mg/dL The pharmacologi jagdish response to blood alcohol levels mayvary from individual to individual. The fatal concentrationhas been reported to be >400mg/dL. Complete Blood Count Auto [id number] 09:44:00* Test Item Value Reference Range Interpretation [...]
[2024-08-14] MEDS ORDERED: NA CHLORIDE 0.9% 1,000 ML ONE (03:23)
[2024-08-14] MEDS ORDERED: IPRATROPIUM BROM 0.5MG/2.5ML ONE (03:23)
[2024-08-14] MEDS ORDERED: LEVALBUTEROL 1.25 MG/3 ML NEB ONE (03:23)
[2024-08-14] MEDS ORDERED: predniSONE 20 MG TAB ONE ×2 (03:23→04:02)
[2024-08-14] MEDS ORDERED: METHYLPREDNISOLONE 125 MG INJ ONE ×2 (03:23→13:42)
[2024-08-14] MEDS ORDERED: ACETAMINOPHEN 500 MG TAB ONE (04:02)
[2024-08-14 04:14] LABS: Absolute Basophils 0.1 K/uL (0-0.5); Absolute Eosinophils 0.7 K/uL (0-0.5); Absolute Monocytes 0.8 K/uL (0.1-1.3); Absolute Neutrophil 5.1 K/uL (1.8-8.0); Basophils % 0.7 % (0-1.3); Hematocrit 40.4 % (36.0-45.0); Lymphocytes % 23.3 % (15.3-44.8); MCH 25.5 pg (27.0-35.0); MCHC 32.3 g/dL (32.0-36.0); MCV 78.9 fL (80-100); MPV 8.5 fL (7.6-11.3); Monocytes % 9.1 % (3.3-12.3); Neutrophils % 58.9 % (41.7-73.7); Platelets 171 thou/uL (152-406); RBC Red Blood Cell Count 5.12 M/uL (3.86-4.86)
--- NOTE | 2024-08-14 04:23 | EDPHYS ---
Physician Documentation [facility] Name: Clarissa Davis Age: 24 yrs Sex: Female : 2000 Arrival Date: 08/14/2024 Time: 03:12 Bed 4 Private MD: ED Physician Michael Bettencourt HPI: 08/14 04:16 This 24 yrs old Female presents to ER via Ambulatory with complaints of layo Congestion, Wheezing > 1 Year, Cough, Shortness Of Breath, Itching. 04:16 The patient presents to the emergency department with wheezing, Current therapy: layo albuterol inhaler. Onset: The symptoms/episode began/occurred 5 day(s) ago. Modifying factors: The symptoms are alleviated by nothing, the symptoms are aggravated by nothing. Associated signs and symptoms: The patient has no apparent associated signs or symptoms. Severity of symptoms: At their worst the symptoms were mild moderate in the emergency department the symptoms are unchanged. The patient has experienced similar episodes in the past, several times. 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 - Infectious Disease History:: Denies. - Social history:: Smoking status: Patient denies any tobacco usage or history of. Patient/guardian denies using alcohol, street drugs. ROS: 04:17 Constitutional: Negative for fever, chills, and weight loss, Eyes: Negative for injury, layo pain, redness, and discharge, ENT: Negative for injury, pain, and discharge, Neck: Negative for injury, pain, and swelling, Cardiovascular: Negative for chest pain, palpitations, and edema, Abdomen/GI: Negative for abdominal pain, nausea, vomiting, diarrhea, and constipation, Back: Negative for injury and pain, : Negative for injury, bleeding, discharge, and swelling, MS/Extremity: Negative for injury and deformity, Skin: Negative for injury, rash, and discoloration, Neuro: Negative for headache, weakness, numbness, tingling, and seizure, Psych: Negative for depression, anxiety, suicide ideation, homicidal ideation, and hallucinations, Allergy/Immunology: Negative for hives, rash, and allergies, Endocrine: Negative for neck swelling, polydipsia, polyuria, polyphagia, and marked weight changes, Hematologic/Lymphatic: Negative for swollen nodes, abnormal bleeding, and unusual bruising, 04:17 Respiratory: Positive for cough, shortness of breath, wheezing, inspiratory, expiratory, 04:17 Respiratory: Positive for 04:17 MS/extremity: Negative for acute changes, swelling, tenderness, Exam: 04:17 Constitutional: This is a well developed, well nourished patient who is awake, alert, layo and in no acute distress. Head/Face: Normocephalic, atraumatic. Eyes: Pupils equal round and reactive to light, extra-ocular motions intact. Lids and lashes normal. Conjunctiva and sclera are non-icteric and not injected. Cornea within normal limits. Periorbital areas with no swelling, redness, or edema. ENT: Nares patent. No nasal discharge, no septal abnormalities noted. Tympanic membranes are normal and external auditory canals are clear. Oropharynx with no redness, swelling, or masses, exudates, or evidence of obstruction, uvula midline. Mucous membranes moist. Neck: Trachea midline, no thyromegaly or masses palpated, and no cervical lymphadenopathy. Supple, full range of motion without nuchal rigidity, or vertebral point tenderness. No Meningismus. Chest/axilla: Normal chest wall appearance and motion. Nontender with no deformity. No lesions are appreciated. Cardiovascular: Regular rate and rhythm with a normal S1 and S2. No gallops, murmurs, or rubs. Normal PMI, no JVD. No pulse deficits. Abdomen/GI: Soft, non-tender, with normal bowel sounds. No distension or tympany. No guarding or rebound. No evidence of tenderness throughout. Back: No spinal tenderness. No costovertebral tenderness. Full range of motion. Skin: Warm, dry with normal turgor. Normal color with no rashes, no lesions, and no evidence of cellulitis. MS/ Extremity: Pulses equal, no cyanosis. Neurovascular intact. Full, normal range of motion. Neuro: Awake and alert, GCS 15, oriented to person, place, time, and situation. Cranial nerves II-XII grossly intact. Motor strength 5/5 in all extremities. Sensory grossly intact. Cerebellar exam normal. Normal gait. Psych: Awake, alert, with orientation to person, place and time. Behavior, mood, and affect are within normal limits. 04:17 Musculoskeletal/extremity: DVT Exam: No signs of deep vein thrombosis. no pain, no swelling, no tenderness, negative Homans' sign noted on exam, no appreciated bluish discoloration, no erythema, no increased warmth, 05:10 ECG was reviewed by the Attending Physician. layo Vital Signs: 03:29 BP 111 / 89; Pulse 97; Resp 28; Temp 98.3; Pulse Ox 90% on R/A; Weight 64.41 kg; Height bm8 5 ft. 4 in. ; Pain 5/10; 04:41 BP 104 / 65; Pulse 110; Resp 19 S; Pulse Ox 97% on R/A; lg3 05:15 BP 119 / 71; Pulse 98; Resp 18; Temp 98.3; Pulse Ox 100% on Nebulizer Mask; Pain 0/10; bm8 06:45 BP 105 / 68; Pulse 102; Resp 17; Temp 98.3; Pulse Ox 94% on R/A; Pain 0/10; bm8 07:49 BP 115 / 88; Pulse 101; Resp 17; Pulse Ox 95% on R/A; hb 03:29 Body Mass Index 24.37 (64.41 kg, 162.56 cm) bm8 03:29 Pain Scale: Adult bm8 05:15 Pain Scale: Adult bm8 06:45 Pain Scale: Adult bm8 Ranier Coma Score: 03:47 Eye Response: spontaneous(4). Motor Response: obeys commands(6). Verbal Response: bm8 oriented(5). Total: 15. 05:15 Eye Response: spontaneous(4). Motor Response: obeys commands(6). Verbal Response: bm8 oriented(5). Total: 15. 06:45 Eye Response: spontaneous(4). Motor Response: obeys commands(6). Verbal Response: bm8 oriented(5). Total: 15. MDM: 03:17 Medical Screening Exam initiated layo 04:18 Differential diagnosis: asthma, Bronchitis acute asthma, exercise-induced asthma, layo reactive airway, CHF. Antibiotic administration: Rocephin and Zithromax given. Differential Diagnosis: Obstructed Airway Bronchitis Influenza Upper Respiratory Infection Sinusitis Pharyngitis Otitis Media Asthma Exacerbation Viral Syndrome Pneumonia. Immunization status:. Data reviewed: vital signs, nurses notes, lab test result(s), radiologic studies, plain films. I considered the following discharge prescriptions or medication management in the emergency department Medications were administered in the Emergency Department. See MAR. Independent interpretation of the following test(s) in the Emergency Department X-Ray: My interpretation is cxr . Test considered but Not performed: CT: no ct chest. Care significantly affected by the following chronic conditions: bipolar, schizo, asthma. 08/14 03:19 Order name: CBC with Diff; Complete Time: 04:15 [facility] 08/14 03:19 Order name: Comprehensive Metabolic Panel; Complete Time: 12:29 [facility] 08/14 03:19 Order name: Urinalysis w/ reflexes; Complete Time: 12:29 [facility] 08/14 03:19 Order name: PREGU; Complete Time: 12:29 [facility] 08/14 03:19 Order name: Flu; Complete Time: 12:29 [facility] 08/14 03:19 Order name: SARS RAPID; Complete Time: 12:29 [facility] 08/14 05:36 Order name: Urinalysis w/ reflexes EDMS 08/14 05:36 Order name: CBC with Automated Diff EDMS 08/14 05:36 Order name: CBC with Automated Diff EDMS 08/14 05:36 Order name: Comprehensive Metabolic Panel EDMS 08/14 05:36 Order name: Comprehensive Metabolic Panel EDMS 08/14 03:19 Order name: Chest Pa And Lat (2 Views) XRAY; Complete Time: 12:29 [facility] 08/14 04:46 Order name: EKG - Nurse/Tech; Complete Time: 05:15 [facility] EC:10 Rate is 105 beats/min. Rhythm is regular. QRS [employer] is Normal. NC interval is normal. layo QRS interval is normal. QT interval is normal. No Q waves. T waves are Normal. No ST changes noted. Clinical impression: NSR w/ Non-specific ST/T Changes and No evidence of ischemia. Interpreted by me. Reviewed by me. Administered Medications: 05:13 Discontinued: rocephin1 grams IV at per protocol once; Given slow IV push per pharmacy bm8 instructions 03:42 Drug: MethylPrednisoLONE IVP 125 mg IVP once Route: IVP; Site: right antecubital; bm8 04:40 Follow up: Response: No adverse reaction lg3 03:46 Drug: NS 0.9% IV 1000 ml IV at 1 bolus Per protocol; to be given as a bolus over 60 bm8 minutes Route: IV; Rate: 1 bolus; Site: right antecubital; 04:40 Follow up: Response: No adverse reaction; IV Status: Completed infusion; IV Intake: lg3 1000ml 03:46 Drug: Levalbuterol Inhalation 3.75 mg Inhalation once Route: Inhalation; bm8 04:40 Follow up: Response: No adverse reaction; Marked relief of symptoms; Wheezing diminishedlg3 03:46 Drug: Ipratropium Inhalation Aerosol 0.5 mg Inhalation once Route: Inhalation; bm8 04:40 Follow up: Response: No adverse reaction; Marked relief of symptoms; Wheezing diminishedlg3 03:47 Not Given (Duplicate Order): [id number] mg PO once layo 04:39 Drug: predniSONE PO 60 mg PO once Route: PO; lg3 04:40 Follow up: Response: No adverse reaction lg3 04:39 Drug: Rocephin IV 1 grams IV at per protocol once; Given slow IV push per pharmacy lg3 instructions Route: IV; Rate: per protocol; Site: right antecubital; 04:40 Follow up: Response: No adverse reaction; IV Status: Completed infusion; IV Intake: [id number] 05:13 Follow up: Response: Adverse reaction, Physician notified; pt began having a severe bm8 cough, became extremely nauseous. INfusion stopped, and pt almost immediately stopped coughing. Provider was informed. medication added to allergy list 05:13 Drug: Magnesium Sulfate IVPB 2 grams IVPB once over 2 hrs Route: IVPB; Infused Over: 2 bm8 hrs; Site: right antecubital; 06:47 Follow up: Response: No adverse reaction; IV Status: Infusion continued upon admission bm8 05:13 Drug: Levalbuterol Inhalation 2.5 mg Inhalation once Route: Inhalation; bm8 06:47 Follow up: Response: No adverse reaction bm8 05:13 Drug: Famotidine IVP 20 mg IVP once; dilute with 10 mL 0.9% NaCl; give over 2 minutes bm8 Route: IVP; Site: right antecubital; 06:21 Follow up: Response: No adverse reaction bm8 05:15 Drug: Promethazine IVP 12.5 mg IVP once Route: IVP; Site: right antecubital; bm8 06:21 Follow up: Response: No adverse reaction bm8 05:15 Drug: NS 0.9% IV 500 ml 500 ml IV at 1 bolus once; to be given as a bolus over 30 bm8 minutes Volume: 500 ml; Route: IV; Rate: 1 bolus; Site: right antecubital; 06:20 Follow up: Response: No adverse reaction; IV Status: Completed infusion; IV Intake: bm8 500ml 05:15 Drug: Promethazine IVP 12.5 mg IVP once; ADD TO 500 CC BOLUS Route: IVP; Site: right bm8 antecubital; 06:20 Follow up: Response: No adverse reaction bm8 Disposition Summary: 08/14/24 04:22 Hospitalization Ordered Notes: Hospitalization Status: Inpatient Admission layo Provider: Louis Sigala cha Condition: Stable layo Problem: new layo Symptoms: have improved layo Bed/Room Type: Standard layo Location: Telemetry/MedSurg (Inpatient)(08/14/24 13:26) Room Assignment: 224(08/14/24 13:26) Diagnosis - Acute upper respiratory infection, unspecified layo - Moderate persistent asthma with (acute) exacerbation layo - Hypoxemia layo - Cough layo Forms: - Medication Reconciliation Form layo - SBAR form layo - Leadership Thank You Letter layo Signatures: Dispatcher [employer] EDMichael Dick MD MD cha Williams, Irene, RN CYNTHIA Brandi Monaco RN RN lg3 George Zapien MD MD ec2 Kruse, Vivian vk McDonald, Brad RN RN bm8 Corrections: (The following items were deleted from the chart) 03:20 03:20 CBC+H.LAB.BRZ ordered. EDMS EDMS 03:20 03:20 COMPREHENSIVE METABOLIC PANEL+C.LAB.BRZ ordered. EDMS EDMS 03:20 03:20 Urinalysis+U.LAB.BRZ ordered. EDMS EDMS 03:20 03:20 Test, Urine+UC.LAB.BRZ ordered. EDMS EDMS 03:20 03:20 Influenza Screen (A \T\ B)+BA.LAB.BRZ ordered. EDMS EDMS 03:20 03:20 SARS-COV-2 Antigen Rapid+I.LAB.BRZ ordered. EDMS EDMS 05:23 03:31 Allergies: No Known Allergies; bm8 bm8 05:23 04:22 Telemetry/MedSurg (Inpatient) layo vk 05:23 04:22 layo vk 05:24 05:23 vk vk 13:26 05:23 [facility] ER HOLD vk iw 13:26 05:24 ERHOLD- vk iw
--- NOTE | 2024-08-14 04:23 | ER ---
Nurse's Notes [facility] Name: Clarissa Davis Age: 24 yrs Sex: Female : 2000 Arrival Date: 08/14/2024 Time: 03:12 Bed 4 Private MD: Diagnosis: Acute upper respiratory infection, unspecified;Moderate persistent asthma with (acute) exacerbation;Hypoxemia;Cough Presentation: 08/14 03:29 Chief complaint: Patient states: I have shortness of breath , wheezing and itching for bm8 at least three days. Coronavirus screen: At this time, the client does not indicate any symptoms associated with coronavirus-19. Ebola Screen: Patient negative for fever greater than or equal to 101.5 degrees Fahrenheit, and additional compatible Ebola Virus Disease symptoms Patient denies exposure to infectious person. Patient denies travel to an Ebola-affected area in the 21 days before illness onset. No symptoms or risks identified at this time. Resp Distress? Mild respiratory distress is noted. Initial Sepsis Screen: Does the patient meet any 2 criteria? No. Patient's initial sepsis screen is negative. Does the patient have a suspected source of infection? No. Patient's initial sepsis screen is negative. Risk Assessment: Do you want to hurt yourself or someone else? Patient reports no desire to harm self or others. Onset of symptoms is unknown. 03:29 Method Of Arrival: Ambulatory bm8 03:29 Acuity: SHADY 3 bm8 Triage Assessment: 03:31 General: Appears distressed, uncomfortable, Behavior is cooperative, appropriate for bm8 age, anxious. Pain: Complains of pain in chest Pain currently is 5 out of 10 on a pain scale. EENT: No deficits noted. No signs and/or symptoms were reported regarding the EENT system. Neuro: No deficits noted. Level of Consciousness is awake, alert, obeys commands, Oriented to person, place, time, situation, Appropriate for age. Cardiovascular: Reports chest pain, shortness of breath, Heart tones S1 S2 present Capillary refill < 3 seconds in bilateral fingers Patient's skin is warm and dry. Rhythm is sinus rhythm. Respiratory: Airway is patent Respiratory effort is even, labored, Respiratory pattern is regular, symmetrical, Breath sounds with wheezes bilaterally. the patient has mild shortness of breath. GI: No signs and/or symptoms were reported involving the gastrointestinal system. : No signs and/or symptoms were reported regarding the genitourinary system. Derm: No signs and/or symptoms reported regarding the dermatologic system. Musculoskeletal: No signs and/or symptoms reported regarding the musculoskeletal system. NARCOTICS DETECTIVE: 03:31 unknown bm8 Historical: - Allergies: 05:23 Rocephin; bm8 - Home Meds: : aripiprazole 10 mg Oral tablet 1 tab every day at bedtime [Active]; citalopram oral bm8 [Active]; clonazepam 1 mg Oral tablet daily [Active]; Depakote 250 mg Oral tablet 3 times per day [Active]; escitalopram oxalate 20 mg Oral tablet daily [Active]; - PMHx: :31 Asthma; Bilat Breast Reduction; Bipolar disorder; Schizophrenia; bm8 - PSHx: :31 Bilateral breast reduction; bm8 - Immunization history:: Adult Immunizations up to date. - Infectious Disease History:: Denies. - Social history:: Smoking status: Patient denies any tobacco usage or history of. Patient/guardian denies using alcohol, street drugs. Screenin:47 [facility] ED Fall Risk Assessment (Adult) History of falling in the last 3 months, bm8 including since admission No falls in past 3 months (0 pts) Confusion or Disorientation No (0 pts) Intoxicated or Sedated No (0 pts) Impaired Gait No (0 pts) Mobility Assist Device Used No (0 pt) Altered Elimination No (0 pt) Score/Fall Risk Level 0 - 2 = Low Risk Oriented to surroundings, Maintained a safe environment, Educated pt \T\ family on fall prevention, incl call for assistance when getting out of bed, Assessed \T\ reinforced patient's understanding of fall precautions, Hourly rounding (assess needs \T\ fall precautionary measures) done, Used ambulatory aids as needed (educated on \T\ assisted with), Used gait belt as appropriate. Abuse screen: Denies threats or abuse. Nutritional screening: No deficits noted. Tuberculosis screening: No symptoms or risk factors identified. Assessment: 05:15 Reassessment: Patient appears in no apparent distress at this time. Patient and/or bm8 family updated on plan of care and expected duration. Pain level reassessed. Patient is alert, oriented x 3, equal unlabored respirations, skin warm/dry/pink. Patient states feeling better. Patient states symptoms have improved. General: Appears in no apparent distress. comfortable, Behavior is calm, cooperative, appropriate for age. Pain: Complains of pain in chest Pain currently is 2 out of 10 on a pain scale. Neuro: No deficits noted. Level of Consciousness is awake, alert, obeys commands, Oriented to person, place, time, situation, Appropriate for age. Cardiovascular: Reports chest pain, Heart tones S1 S2 present Capillary refill < 3 seconds fingers toes Rhythm is sinus rhythm. Respiratory: Airway is patent Respiratory effort is even, unlabored, Respiratory pattern is regular, symmetrical, Breath sounds are clear bilaterally. the patient reports symptoms have resolved. GI: No deficits noted. No signs and/or symptoms were reported involving the gastrointestinal system. : No deficits noted. No signs and/or symptoms were reported regarding the genitourinary system. EENT: No deficits noted. No signs and/or symptoms were reported regarding the EENT system. Derm: No deficits noted. No signs and/or symptoms reported regarding the dermatologic system. Musculoskeletal: No deficits noted. No signs and/or symptoms reported regarding the musculoskeletal system. 06:45 Reassessment: Patient appears in no apparent distress at this time. No changes from bm8 previously documented assessment. Patient and/or family updated on plan of care and expected duration. Pain level reassessed. Patient is alert, oriented x 3, equal unlabored respirations, skin warm/dry/pink. Patient denies pain at this time. Patient states feeling better. Patient states symptoms have improved. Vital Signs: 03:29 BP 111 / 89; Pulse 97; Resp 28; Temp 98.3; Pulse Ox 90% on R/A; Weight 64.41 kg; Height bm8 5 ft. 4 in. ; Pain 5/10; 04:41 BP 104 / 65; Pulse 110; Resp 19 S; Pulse Ox 97% on R/A; lg3 05:15 BP 119 / 71; Pulse 98; Resp 18; Temp 98.3; Pulse Ox 100% on Nebulizer Mask; Pain 0/10; bm8 06:45 BP 105 / 68; Pulse 102; Resp 17; Temp 98.3; Pulse Ox 94% on R/A; Pain 0/10; bm8 07:49 BP 115 / 88; Pulse 101; Resp 17; Pulse Ox 95% on R/A; hb 03:29 Body Mass Index 24.37 (64.41 kg, 162.56 cm) bm8 03:29 Pain Scale: Adult bm8 05:15 Pain Scale: Adult bm8 06:45 Pain Scale: Adult bm8 Karely Coma Score: 03:47 Eye Response: spontaneous(4). Motor Response: obeys commands(6). Verbal Response: bm8 oriented(5). Total: 15. 05:15 Eye Response: spontaneous(4). Motor Response: obeys commands(6). Verbal Response: bm8 oriented(5). Total: 15. 06:45 Eye Response: spontaneous(4). Motor Response: obeys commands(6). Verbal Response: bm8 oriented(5). Total: 15. ED Course: 03:15 Patient arrived in ED. [email or web address] 03:17 Michael Bettencourt MD is Attending Physician. layo 03:29 Charly James, RN is Primary Nurse. bm8 03:31 Triage completed. bm8 03:31 Arm band placed on left wrist. bm8 03:47 Patient has correct armband on for positive identification. Placed in gown. Bed in low bm8 position. Call light in reach. Side rails up X 1. Adult w/ patient. Client placed on continuous cardiac and pulse oximetry monitoring. NIBP monitoring applied. matchbook maker on. Pulse ox on. NIBP on. Door closed. Noise minimized. Visitors limited. Warm blanket given. Pillow given. Verbal reassurance given. Head of bed elevated. 03:47 No provider procedures requiring assistance completed. Initial lab(s) drawn, by ED bm8 staff, sent to lab. Initial Neb Treatment Given as ordered Patient was instructed and evaluated on procedure Patient tolerated procedure well without adverse effect. Inserted saline lock: 22 gauge in right antecubital area, using aseptic technique. Blood collected. Flushed with 10 mL NS. 04:21 Louis Sigala MD is Hospitalizing Provider. layo 04:23 Chest Pa And Lat (2 Views) XRAY In Process Unspecified. EDMS 05:15 Provided Education on: need for admission. bm8 05:15 Patient admitted, IV remains in place. bm8 07:01 Assisted to bathroom. vk Administered Medications: 05:13 Discontinued: rocephin1 grams IV at per protocol once; Given slow IV push per pharmacy bm8 instructions 03:42 Drug: MethylPrednisoLONE IVP 125 mg IVP once Route: IVP; Site: right antecubital; bm8 04:40 Follow up: Response: No adverse reaction lg3 03:46 Drug: NS 0.9% IV 1000 ml IV at 1 bolus Per protocol; to be given as a bolus over 60 bm8 minutes Route: IV; Rate: 1 bolus; Site: right antecubital; 04:40 Follow up: Response: No adverse reaction; IV Status: Completed infusion; IV Intake: lg3 1000ml 03:46 Drug: Levalbuterol Inhalation 3.75 mg Inhalation once Route: Inhalation; bm8 04:40 Follow up: Response: No adverse reaction; Marked relief of symptoms; Wheezing diminishedlg3 03:46 Drug: Ipratropium Inhalation Aerosol 0.5 mg Inhalation once Route: Inhalation; bm8 04:40 Follow up: Response: No adverse reaction; Marked relief of symptoms; Wheezing diminishedlg3 03:47 Not Given (Duplicate Order): [id number] mg PO once layo 04:39 Drug: predniSONE PO 60 mg PO once Route: PO; lg3 04:40 Follow up: Response: No adverse reaction lg3 04:39 Drug: Rocephin IV 1 grams IV at per protocol once; Given slow IV push per pharmacy lg3 instructions Route: IV; Rate: per protocol; Site: right antecubital; 04:40 Follow up: Response: No adverse reaction; IV Status: Completed infusion; IV Intake: [id number] 05:13 Follow up: Response: Adverse reaction, Physician notified; pt began having a severe bm8 cough, became extremely nauseous. INfusion stopped, and pt almost immediately stopped coughing. Provider was informed. medication added to allergy list 05:13 Drug: Magnesium Sulfate IVPB 2 grams IVPB once over 2 hrs Route: IVPB; Infused Over: 2 bm8 hrs; Site: right antecubital; 06:47 Follow up: Response: No adverse reaction; IV Status: Infusion continued upon admission bm8 05:13 Drug: Levalbuterol Inhalation 2.5 mg Inhalation once Route: Inhalation; bm8 06:47 Follow up: Response: No adverse reaction bm8 05:13 Drug: Famotidine IVP 20 mg IVP once; dilute with 10 mL 0.9% NaCl; give over 2 minutes bm8 Route: IVP; Site: right antecubital; 06:21 Follow up: Response: No adverse reaction bm8 05:15 Drug: Promethazine IVP 12.5 mg IVP once Route: IVP; Site: right antecubital; bm8 06:21 Follow up: Response: No adverse reaction bm8 05:15 Drug: NS 0.9% IV 500 ml 500 ml IV at 1 bolus once; to be given as a bolus over 30 bm8 minutes Volume: 500 ml; Route: IV; Rate: 1 bolus; Site: right antecubital; 06:20 Follow up: Response: No adverse reaction; IV Status: Completed infusion; IV Intake: bm8 500ml 05:15 Drug: Promethazine IVP 12.5 mg IVP once; ADD TO 500 CC BOLUS Route: IVP; Site: right bm8 antecubital; 06:20 Follow up: Response: No adverse reaction bm8 Medication: 03:47 VIS not applicable for this client. bm8 Intake: 04:40 IV: 10ml; Total: 10ml. lg3 04:40 IV: 1000ml; Total: 1010ml. lg3 06:20 IV: 500ml; Total: 1510ml. bm8 Outcome: 04:22 Decision to Hospitalize by Provider. layo 06:45 Admitted to ER Hold. Please see [facility] for further documentation. bm8 06:45 Condition: stable 06:45 Instructed on the need for admit, Demonstrated understanding of instructions, follow-up care, medications, 14:30 Patient left the ED. Signatures: Dispatcher [employer] EDMichael Dick MD MD cha Baxter, Heather, RN RN hb Able, Lacie, RN RN 3 Sue Moreau Vivian vk McDonald, Brad, RN RN bm8 Corrections: (The following items were deleted from the chart) 05:23 03:31 Allergies: No Known Allergies; bm8 bm8 06:45 03:29 BP 111 / 89; Pulse 97bpm; Resp 28bpm; Pulse Ox 90% RA; Temp 98.3F; 64.41 kg; bm8 Height 5 ft. 4 in.; BMI: 24.3; Pain 5/10, Adult; bm8
[2024-08-14 04:27] LABS: Albumin 3.1 g/dL (3.4-5.0); Albumin/Globulin Ratio 0.7 (1.1-1.8); Anion Gap 9.8 mEq/L (5.0-15.0); Bilirubin Total 0.2 mg/dL (0.2-1.0); Globulin 4.4 g/dL (2.3-3.5); Potassium 4.8 mEq/L (3.5-5.1); Protein, Total 7.5 g/dL (6.4-8.2)
[2024-08-14] MEDS ORDERED: CEFTRIAXONE 1000 MG/VIAL ONE (04:33)
[2024-08-14 04:49] LABS: SARS-CoV-2 Antigen CONTROL BLUE LINE VIS/BG OK; SARS-CoV-2 Antigen Rapid Res Negative (Negative)
[2024-08-14] MEDS ORDERED: LEVALBUTEROL 0.63 MG/3 ML NEB ONE (04:56)
[2024-08-14] MEDS ORDERED: NA CHLORIDE 0.9% 500 ML ONE (04:56)
[2024-08-14] MEDS ORDERED: FAMOTIDINE 20 MG/2 ML VIAL IV ONE (04:56)
[2024-08-14] MEDS ORDERED: Magnesium Sulfate 2gm IVPB 2 G/50 ML BAG IV ONE (04:56)
[2024-08-14] MEDS ORDERED: PROMETHAZINE INJ 25 MG/ML AMP ONE (04:56)
--- NOTE | 2024-08-14 05:21 | P.HP ---
Certification for Inpatient Patient admitted to: Inpatient With expected LOS: >2 Midnights Practitioner: I am a practitioner with admitting privileges, knowledge of patient current condition, hospital course, and medical plan of care. Services: Services provided to patient in accordance with Admission requirements found in Title 42 Section 412.3 of the Code of Federal Regulations Patient History Date of Service: 08/14/24 Reason for admission: SOB History of Present Illness: 24 yrs old Female with past medical history of bipolar disorder, schizophrenia, asthma was brought to ER with shortness of breath and cough and cold which has been going on for the last 5 days and has been progressively worsening and was brought to ER. Denies any fever. No nausea vomiting or diarrhea. Started initially with itching, cough, congestion. No sick contacts. Has been using albuterol inhalers without much benefit. Patient started having shortness of breath and has been progressively getting worse and cough is productive with mucoid expectoration. Denies any hemoptysis. Denies any chest pain. Shortness of breath worse with minimal exertion. Patient was assessed in the ER and is admitted for further management of asthma exacerbation Home medications list reviewed: Yes - Past Medical/Surgical History Past Medical History: Reviewed- Non-Contributory -: Asthma, bipolar disorder, schizophrenia Past Surgical History: Reviewed- Non-Contributory - Family History Family History: Reviewed- Non-Contributory - Social History Smoking Status: Never smoker Review of Systems 10-point ROS is otherwise unremarkable Physical Examination - Vital Signs Temperature: 97.9 F Blood Pressure: 112/76 Pulse: 92 Respirations: 18 Pulse Ox (%): 94 - Physical Exam General: Alert, Oriented x3, Mild distress HEENT: Atraumatic, Normocephalic Neck: Supple Respiratory: Diminished, Crackles/rales, Expiratory wheezes Cardiovascular: Regular rate/rhythm, Normal S1 S2, No murmurs Capillary refill: <2 Seconds Gastrointestinal: Soft and benign, W/out hepatosplenomegaly Musculoskeletal: No clubbing, No swelling Integumentary: No rashes, No breakdown Neurological: Normal speech, Normal strength at 5/5 x4 extr Lymphatics: No axilla or inguinal lymphadenopathy - Studies Laboratory Data (last 24 hrs) 08/14/24 08/14/24 03:40 03:40 WBC 8.60 Hgb 13.0 Hct 40.4 Plt Count 171 Sodium 133 L Potassium 4.8 BUN 26 H Creatinine 2.04 H Glucose 101 Total Bilirubin 0.2 AST 19 ALT 17 Alkaline Phosphatase 86 Microbiology Data (last 24 hrs): 08/14/24 03:40 Nasopharnyx Influenza Type A Antigen Screen - Final 08/14/24 03:40 Nasopharnyx Influenza Type B Antigen Screen - Final Assessment and Plan - Plan Asthma exacerbation Monitor closely on telemetry Started on bronchodilators Oxygen supplementation Steroids added Chest x-ray findings noted Pulmonology consult if not better in the a.m. Acute kidney injury Possibly prerenal Started on fluids Monitor renal parameters Electrolytes monitor and replace accordingly Hyponatremia Started on normal saline Monitor sodium levels Anxiety Bipolar disorder Continue home medications and titrate as needed GI/DVT prophylaxis Advanced directive full code Discharge Plan: Home Plan to discharge in: 48 Hours - Advance Directives Does patient have a Living Will: No Does patient have a Durable POA for Healthcare: No - Code Status/Comfort Care Code Status: Full Code Time Spent Managing Pts Care (In Minutes): 48
[2024-08-14 05:22] LABS: Specific Gravity 1.008 (1.005-1.030)
[2024-08-14] MEDS ORDERED: ONDANSETRON 4 MG/2 ML VIAL IV PRN (05:30)
[2024-08-14] MEDS ORDERED: ALBUTEROL 2.5 MG/3 ML NEB SOL NEB PRN (05:30)
[2024-08-14] MEDS ORDERED: ACETAMINOPHEN 325 MG TABLET PO PRN (05:30)
[2024-08-14 05:40] LABS: Specific Gravity 1.009 (1.005-1.030); Sqamous Epithelial <5 /HPF (None Seen); Urine Bacteria None Seen /HPF (<20); Urine Bilirubin NEGATIVE (Negative); Urine Blood Negative (Negative); Urine Clarity Turbid (Clear); Urine Color Colorless (Yellow); Urine Culture Reflex Order NOT NEEDED; Urine Glucose NEGATIVE (Negative); Urine Ketones NEGATIVE (Negative); Urine Microscopic Reflex YN ORDER UMIC; Urine Nitrite NEGATIVE (Negative); Urine Protein NEGATIVE (Negative); Urine RBC <5 /HPF (None Seen); Urine Urobilinogen Normal (Normal); Urine WBC <5 /HPF (<5); Urine pH 5.5 (5.0-7.0)
[2024-08-14] MEDS: NA CHLORIDE 0.9% 1,000 ML IV SCH (06:00)
[2024-08-14] MEDS: METHYLPREDNISOLONE 125 MG INJ IV SCH (06:00)
--- NOTE | 2024-08-14 06:17 | RAD REPORT ---
EXAM: XR Chest 2 Views AP PA Lateral HISTORY: Cough; Dyspnea COMPARISON: None TECHNIQUE: Chest 2 Views AP PA Lateral FINDINGS: Trachea midline. Heart size and pulmonary vessels within normal limits. Lungs clear without evidence of consolidation, mass, or significant pulmonary edema. No significant pleural effusion or pneumothorax. Bones unremarkable. IMPRESSION: Normal chest radiograph. Electronically signed by: Shubham Rios MD 08/14/2024 05:28 AM CDT RP Due to temporary technical issues with the [employer] reporting system, reports are being kym d by the in-house radiologist without review as a courtesy to ensure prompt reporting the interpreting radiologist is fully responsible for the content of the report. Transcribed Date/Time: 08/14/2024 6:16 AM
[2024-08-14] MEDS: ALBUTEROL 2.5 MG/3 ML NEB SOL NEB SCH (07:00)
[2024-08-14] MEDS ORDERED: METHYLPREDNISOLONE 40 MG INJ ONE (07:02)
[2024-08-14 07:28] VITALS: BMI 24.3
[2024-08-14] MEDS: ENOXAPARIN 40 MG/0.4 ML SQ SCH (09:00)
--- NOTE | 2024-08-14 09:07 | P.PN ---
Subjective Date of Service: 08/14/24 Patient appears to be doing well with no new complaints. Respiratory status has stabilized. Continue with observation admission and anticipate discharge in the morning. Review of Systems 10-point ROS is otherwise unremarkable Physical Examination - Vital Signs Temperature: 97.9 F Blood Pressure: 115/88 Pulse: 101 Respirations: 15 Pulse Ox (%): 95 - Physical Exam General: Alert, In no apparent distress, Oriented x3 HEENT: Atraumatic, PERRLA, EOMI Neck: Supple, JVD not distended Respiratory: Diminished, Expiratory wheezes Cardiovascular: Regular rate/rhythm, Normal S1 S2 Gastrointestinal: Normal bowel sounds, Soft and benign, Non-distended, No tenderness Musculoskeletal: No tenderness Integumentary: No rashes Neurological: Normal speech, Normal tone, Normal affect Lymphatics: No axilla or inguinal lymphadenopathy - Studies Laboratory Data (last 24 hrs) 08/14/24 08/14/24 03:40 03:40 WBC 8.60 Hgb 13.0 Hct 40.4 Plt Count 171 Sodium 133 L Potassium 4.8 BUN 26 H Creatinine 2.04 H Glucose 101 Total Bilirubin 0.2 AST 19 ALT 17 Alkaline Phosphatase 86 Microbiology Data (last 24 hrs): 08/14/24 03:40 Nasopharnyx Influenza Type A Antigen Screen - Final 08/14/24 03:40 Nasopharnyx Influenza Type B Antigen Screen - Final Medications List Reviewed: Yes Assessment & Plan - Problems (Diagnosis) (1) Asthma exacerbation Current Visit: Yes Status: Acute - Plan Plan: 1. Continue with albuterol and Atrovent nebs 2. Continue with IV steroids 3. Outpatient pulmonary function testing 4. Pulmonary follow-up 5. Room air O2 sats 6. Repeat chest x-ray in the morning 7. Peak flows as needed 8. GI and DVT prophylaxis Discharge Plan: Home Plan to discharge in: 24 Hours - Advance Directives Does patient have a Living Will: No Does patient have a Durable POA for Healthcare: No - Code Status/Comfort Care Code Status: Full Code Critical Care: No Time Spent Managing PTS Care (In Minutes): 40
[2024-08-14] MEDS ORDERED: ALBUTEROL 2.5 MG/3 ML NEB SOL ONE (13:42)
[2024-08-14] MEDS: FLU (Fluarix Triv) TS24-25(6MOS UP)/PF 45 MCG/0.5 ML Syringe IM ONE (14:00)
[2024-08-14] MEDS: QUETIAPINE 25 MG TAB PO SCH (22:54)
[2024-08-15 06:34] LABS: Absolute Lymphocytes (CBC) 1.1 K/uL (0.7-4.9); Absolute Monocytes 0.4 K/uL (0.1-1.3); Absolute Neutrophil 11.7 K/uL (1.8-8.0); Basophils % 0.1 % (0-1.3); Hematocrit 36.6 % (36.0-45.0); Lymphocytes % 8.6 % (15.3-44.8); MCH 25.7 pg (27.0-35.0); MCHC 32.7 g/dL (32.0-36.0); MCV 78.4 fL (80-100); Monocytes % 3.3 % (3.3-12.3); Platelets 172 thou/uL (152-406); RBC Red Blood Cell Count 4.68 M/uL (3.86-4.86); Red Cell Distribution Width 16.5 % (12.1-15.2)
[2024-08-15 06:45] LABS: AST/SGOT 12 U/L (15-37); Albumin 2.8 g/dL (3.4-5.0); Albumin/Globulin Ratio 0.7 (1.1-1.8); Alkaline Phosphatase 72 U/L (45-117); Anion Gap 7.6 mEq/L (5.0-15.0); BUN Blood Urea Nitrogen 24 mg/dL (7-18); Bicarbonate 25 mEq/L (21-32); Bilirubin Total 0.2 mg/dL (0.2-1.0); Globulin 3.8 g/dL (2.3-3.5); Glomerular Filtration Rate 46 ml/min (=/>90); Glucose Level 152 mg/dL (74-106); Magnesium 2.3 mg/dL (1.6-2.4); Potassium 4.6 mEq/L (3.5-5.1); Protein, Total 6.6 g/dL (6.4-8.2); Sodium Level 139 mEq/L (136-145)
[2024-08-15 06:48] LABS: ALT/SGPT < 14 U/L (13-56)
[2024-08-15 09:02] VITALS: O2SAT 94
[2024-08-15 09:11] LABS: Blood Morphology Comment NOT SEEN (NOT SEEN); Platelet Estimate ADEQ; White Blood Cell Scan OK (OK)
--- NOTE | 2024-08-15 09:49 | P.DS ---
Admission Date: 08/14/24 Discharge Date: 08/15/24 Disposition: ROUTINE DISCHARGE Discharge Condition: GOOD Reason for Admission: SOB Brief History of Present Illness: 24 yrs old Female with past medical history of bipolar disorder, schizophrenia, asthma was brought to ER with shortness of breath and cough and cold which has been going on for the last 5 days and has been progressively worsening and was brought to ER. Denies any fever. No nausea vomiting or diarrhea. Started initially with itching, cough, congestion. No sick contacts. Has been using albuterol inhalers without much benefit. Patient started having shortness of breath and has been progressively getting worse and cough is productive with mucoid expectoration. Denies any hemoptysis. Denies any chest pain. Shortness of breath worse with minimal exertion. Patient was assessed in the ER and is admitted for further management of asthma exacerbation - Physical Exam General: Alert, Oriented x3, HEENT: Atraumatic, Normocephalic Neck: Supple Respiratory: Diminished, Expiratory wheezes Cardiovascular: Regular rate/rhythm, Normal S1 S2, No murmurs Capillary refill: <2 Seconds Gastrointestinal: Soft and benign, W/out hepatosplenomegaly Musculoskeletal: No clubbing, No swelling Integumentary: No rashes, No breakdown Neurological: Normal speech, Normal strength at 5/5 x4 extr Lymphatics: No axilla or inguinal lymphadenopathy Hospital Course: 24 yrs old Female with past medical history of bipolar disorder, schizophrenia, asthma was brought to ER with shortness of breath and cough and cold which has been going on for the last 5 days and has been progressively worsening and was brought to ER. Denies any fever. No nausea vomiting or diarrhea. Started initially with itching, cough, congestion. No sick contacts. Has been using albuterol inhalers without much benefit. Patient started having shortness of breath and has been progressively getting worse and cough is productive with mucoid expectoration. Denies any hemoptysis. Denies any chest pain. Shortness of breath worse with minimal exertion. Patient was assessed in the ER and is admitted for further management of asthma exacerbation. He was treated with nebulizers, steroids, will need to follow-up with pulmonary outpatient. Stable to discharge home, Discharge medication Albuterol inhaler, albuterol nebs, albuterol nebulizer called in, Prednisone 5-day weaning dose, needs to follow-up with pulmonary after discharge Assessment Asthma exacerbation, follow-up with pulmonary outpatient for pulmonary function testing Chest x-ray no acute abnormality Bipolar, schizophrenia, resume home meds follow-up with psych outpatient Discharge medication, steroids, inhalers, nebulizers, Continue home medicines as previously prescribed GOAL: Clear understanding of disease process INSTRUCTIONS: Physician Discharge Instructions: -Follow-up with pulmonary for pulmonary function testing -Follow-up with PCP in 1 to 2 weeks -Please call Dr. Cardenas at [phone] if any questions regarding hospital stay -Please call nursing station at [phone] if any nursing or medication questions -Return to the emergency room if symptoms worsen Diet: ADA, low sodium Activity: Fall precautions Vital Signs/Physical Exam: Temp Pulse Resp BP Pulse Ox 97.3 F 107 H 14 98/57 L 93 08/15/24 04:00 08/15/24 04:00 08/15/24 04:00 08/15/24 04:00 08/15/24 04:00 Laboratory Data at Discharge: WBC 13.30 thou/uL (4.3-10.9) H 08/15/24 05:54 Hgb 12.0 g/dL (12.0-15.0) 08/15/24 05:54 Hct 36.6 % (36.0-45.0) 08/15/24 05:54 Plt Count 172 thou/uL (152-406) 08/15/24 05:54 Sodium 139 mEq/L (136-145) D 08/15/24 05:54 Potassium 4.6 mEq/L (3.5-5.1) 08/15/24 05:54 BUN 24 mg/dL (7-18) H 08/15/24 05:54 Creatinine 1.60 mg/dL (0.55-1.02) H 08/15/24 05:54 Glucose 152 mg/dL (74-106) H 08/15/24 05:54 Magnesium 2.3 mg/dL (1.6-2.4) 08/15/24 05:54 Total Bilirubin 0.2 mg/dL (0.2-1.0) 08/15/24 05:54 AST 12 U/L (15-37) L 08/15/24 05:54 ALT < 14 U/L (13-56) 08/15/24 05:54 Alkaline Phosphatase 72 U/L (45-117) 08/15/24 05:54 Home Medications: Aripiprazole [Abilify] 15 mg PO BID 08/14/24 Benztropine Mesylate 1 mg PO BID 08/14/24 Divalproex Sodium [Depakote ER] 1 tab PO BID 08/14/24 Escitalopram Oxalate [Lexapro] 20 mg PO DAILY 08/14/24 Quetiapine Fumarate [Seroquel] 400 mg PO BEDTIME 08/14/24 haloperidoL [Haldol*] 10 mg PO BID 08/14/24 hydrOXYzine pamoate [Hydroxyzine Pamoate] 1 cap PO BID 08/14/24 Albuterol Inhaler [Ventolin Inhaler*] 1 puff PO Q4H PRN 30 Days #1 inh 08/15/24 Albuterol Neb [Proventil 0.083% Neb Soln] 2.5 mg NEB [id number] 30 Days #1 box 08/15/24 Nebulizer and Compressor [[place] [employer] Nebulizer] 1 each MC DAILY 30 Days #1 ea 08/15/24 predniSONE [Deltasone] 10 mg PO DAILY 5 Days #15 tab 08/15/24 New Medications: Nebulizer and Compressor [[place] Choice Nebulizer] 1 each MC DAILY 30 Days #1 ea predniSONE [Deltasone] 10 mg PO DAILY 5 Days #15 tab Albuterol Neb [Proventil 0.083% Neb Soln] 2.5 mg NEB [id number] 30 Days #1 box Albuterol Inhaler [Ventolin Inhaler*] 1 puff PO Q4H PRN 30 Days #1 inh PRN Reason: Shortness Of Breath Physician Discharge Instructions: 24 yrs old Female with past medical history of bipolar disorder, schizophrenia, asthma was brought to ER with shortness of breath and cough and cold which has been going on for the last 5 days and has been progressively worsening and was brought to ER. Denies any fever. No nausea vomiting or diarrhea. Started initially with itching, cough, congestion. No sick contacts. Has been using albuterol inhalers without much benefit. Patient started having shortness of breath and has been progressively getting worse and cough is productive with mucoid expectoration. Denies any hemoptysis. Denies any chest pain. Shortness of breath worse with minimal exertion. Patient was assessed in the ER and is admitted for further management of asthma exacerbation. He was treated with nebulizers, steroids, will need to follow-up with pulmonary outpatient. Stable to discharge home, Assessment Asthma exacerbation, follow-up with pulmonary outpatient for pulmonary function testing Chest x-ray no acute abnormality Bipolar, schizophrenia, resume home meds follow-up with psych outpatient Discharge medication, steroids, inhalers, nebulizers, Continue home medicines as previously prescribed GOAL: Clear understanding of disease process INSTRUCTIONS: Physician Discharge Instructions: -Follow-up with pulmonary for pulmonary function testing -Follow-up with PCP in 1 to 2 weeks -Please call Dr. Cardenas at [phone] if any questions regarding hospital stay -Please call nursing station at [phone] if any nursing or medication questions -Return to the emergency room if symptoms worsen Diet: ADA, low sodium Activity: Fall precautions Diet: AHA Activity: Fall precautions Followup: Tomy Davis MD [ACTIVE - CAN ADMIT] - 1-2 Weeks NONE,NONE [Primary Care Provider] - Time spent managing pt's care (in minutes): 55
[2024-08-15 14:03] VITALS: BP 118/67; TEMP 97.4
--- NOTE | 2024-08-16 11:59 | EKG ---
Test Date: 2024-08-14 Test Time: 04:50:36 [employer] Consultant: YRIS MEASUREMENT RESULTS: Intervals: Rate: 105 TN: 140 QRSD: 78 QT: 336 QTc: 444 [place]: P: 62 TN: 140 QRS: 70 T: 49 INTERPRETIVE STATEMENTS: Sinus tachycardia Otherwise normal ECG Compared to ECG 07/16/2023 10:51:49 Sinus rhythm no longer present Electronically Signed On 08-16-24 11:53:50 CDT by Elvis Kwok
== END 2024-08-15 14:34 | disposition home or self-care (01) ==
LOC: ER 03:12 → INTOOBSV 05:30 → ERHOLD 05:30 → 2ND 13:59
PROVIDERS: ADMIT Family Medicine; ATTEND Hospitalist
DX: J44.1 Chronic obstructive pulmonary disease with (acute) exacerbation (principal); J06.9 Acute upper respiratory infection, unspecified; R09.02 Hypoxemia; R06.02 Shortness of breath; F31.9 Bipolar disorder, unspecified; F20.9 Schizophrenia, unspecified; R05.9 Cough, unspecified; E87.1 Hypo-osmolality and hyponatremia; F41.9 Anxiety disorder, unspecified; Z11.52 Encounter for screening for COVID-19
CPT/HCPCS: 93005; 85025 ×2; 81001; 36415 ×2; 83735; 81025; 80053 ×2; 87804 ×2; 71046; 94640 ×5; 94760 ×3; 87811; J2550; J7512 ×2; J3475; J7614 ×2; J7613 ×5; J7644; J1650; J2919 ×7; J7040; J7030 ×5; J0696; 96361; 96365; 96366; 96375; 99285; G0378